=== PATIENT | female | born 1960 | race Caucasian/White ===

== ENCOUNTER 2016-06-11 08:38 | Emergency (ER) | payer MEDICARE, OTHER ==
[~2016-06-11] VITALS: Ht 157.5 cm; Wt 85.7 kg
[~2016-06-11 08:38] MED LIST: AMOX875T PO; CYCL10TA2 PO; DIGO125T16 PO; FURO-69 PO; HYDR-971 PO; IBUP-1060 PO; METO-313 PO; NAPR250T2 PO; NITR0.4T6 SL
[2016-06-11 08:50] VITALS: BP 146/84
[2016-06-11] MEDS ORDERED: HYDR-971 PO (09:08)
[2016-06-11] MEDS ORDERED: AMOX500C PO (09:08)
[2016-06-11] MEDS ORDERED: FLUC150T PO (09:08)
--- NOTE | 2016-06-11 09:08 | PHYS DOC ---
Past Medical History Past Medical History: Anxiety, CAD, CHF, COPD, Hypertension, VT, Other Additional Past Medical Histor: VT x 13; cardiac arrest Past Surgical History: Coronary Bypass Surgery, , Tubal ligation, Other Additional Past Surgical Histo: right femoral artery stent; right knee Alcohol Use: None Drug Use: None Adult General Chief Complaint Chief Complaint: DENTAL PROBLEM HPI HPI Patient is a 56 year old female who presents the emergency room with complaint of atraumatic left lower dental pain that began approximately 2 days ago. Patient has a history of poor dental health/dental caries. She was seen here in December of this past year with the same complaint. She did follow up with [facility]. She states that she will follow-up again with [facility] to be taking care of. She denies antibiotic use or dental procedures within the past 30 days. She denies any fevers or chills, myalgias or arthralgias. Review of Systems Review of Systems Constitutional: Denies fever or chills [] Eyes: Denies change in visual acuity, redness, or eye pain [] HENT: Denies nasal congestion or sore throat [] Respiratory: Denies cough or shortness of breath [] Cardiovascular: No additional information not addressed in HPI [] GI: Denies abdominal pain, nausea, vomiting, bloody stools or diarrhea [] : Denies dysuria or hematuria [] Musculoskeletal: Denies back pain or joint pain [] Integument: Denies rash or skin lesions [] Neurologic: Denies headache, focal weakness or sensory changes [] Endocrine: Denies polyuria or polydipsia [] Allergies Allergies Allergies Coded Allergies Type Severity Reaction Last Updated Verified No Known Drug Allergies 11/28/14 No Physical Exam Physical Exam Constitutional: Well developed, well nourished, mild distress, non-toxic appearance. HENT: Normocephalic, atraumatic, bilateral external ears normal, oropharynx moist, no oral exudates, nose normal. There is no trismus. Patient is widespread dental caries and very stages of decay. Her mandibular lateral incisors and cuspids, both left and right are decayed into the dentin with a large amount of plaque debris buildup at the base and gingival swelling. There is no purulent drainage or fluctuant pockets indicating an abscess. Patient's first and second mandibular molars bilaterally are decayed into the pulp at the gumline level. There is mild inflammation around these molars. There is no purulent drainage or fluctuant pocket indicative of an abscess. Eyes: PERRLA, EOMI, conjunctiva normal, no discharge. [] Neck: Normal range of motion, no tenderness, supple, no stridor. Cardiovascular:Heart rate regular rhythm, no murmur [] Lungs & Thorax: Bilateral breath sounds clear to auscultation [] Abdomen: Bowel sounds normal, soft, no tenderness, no masses, no pulsatile masses. [] Skin: Warm, dry, no erythema, no rash. [] Back: No tenderness, no CVA tenderness. [] Extremities: No tenderness, no cyanosis, no clubbing, ROM intact, no edema. [] Neurologic: Alert and oriented X 3, normal motor function, normal sensory function, no focal deficits noted. [] Psychologic: Affect normal, judgement normal, mood normal. [] EKG EKG [] Radiology/Procedures Radiology/Procedures [] Course & Med Decision Making Course & Med Decision Making Pertinent Labs and Imaging studies reviewed. (See chart for details) [] Dragon Disclaimer Dragon Disclaimer This electronic medical record was generated, in whole or in part, using a voice recognition dictation system. Departure Departure Impression: Primary Impression: Infected dental caries Disposition: HOME, SELF-CARE Condition: GOOD Referrals: HOMERO ROCKWELL (PCP) Patient Instructions: Dental Caries-Brief, Dental Pain, [id number] Additional Instructions: 1. Take the medication as prescribed. 2. Review the discharge instructions for self-care and reasons to return to the emergency department. 3. Contact [facility] to get in for follow-up as soon as possible. Be sure to explain to the office staff that you are on antibiotics. 4. Should you require any refills, contact your primary care doctor for this. Scripts Fluconazole (Diflucan)150 Mg Tablet1 Tab PO ONCE symptoms of yeast infection #1 TAB Ref 1 Prov:THAD MACEDO 06/11/16 Hydrocodone/Apap 5-325 (Sunland 5-325 Tablet)1 Each Tablet1 Tab PO PRN Q6HRS PRN PAIN #15 TAB Prov:THAD MACEDO 06/11/16 Amoxicillin 500 Mg [id number] Mg PO TID #30 CAP Prov:THAD MACEDO 06/11/16 THAD MACEDO Jun 11, 2016 09:08
== END 2016-06-11 09:13 | disposition home or self-care (01) ==
LOC: ER 08:38
DX: K02.9 Dental caries, unspecified (principal); K04.7 Periapical abscess without sinus; I10 Essential (primary) hypertension; F41.9 Anxiety disorder, unspecified; I25.10 Atherosclerotic heart disease of native coronary artery without angina pectoris; I25.2 Old myocardial infarction; J44.9 Chronic obstructive pulmonary disease, unspecified; I11.0 Hypertensive heart disease with heart failure; I50.9 Heart failure, unspecified; Z95.1 Presence of aortocoronary bypass graft; Z98.51 Tubal ligation status
CPT/HCPCS: 99283

== ENCOUNTER 2016-07-05 16:51 | Inpatient (IN) | payer MEDICARE, MEDICAID ==
[~2016-07-05] VITALS: Ht 157.5 cm; Wt 87.2 kg
[~2016-07-05 16:51] MED LIST changes: +AMOX500C PO; +FLUC150T PO
--- NOTE | 2016-07-05 17:28 | RAD ---
PROCEDURE CT brain without contrast HISTORY CODE STROKE; RIGHT SIDE WEAKNESS AND NUMBNESS TECHNIQUE Axial CT images were obtained through the brain. One or more of the following individualized dose reduction techniques were utilized for this examination: 1. Automated exposure control; 2. Adjustment of the mA and/or kV according to patient size; 3. Use of iterative reconstruction technique.One or more of the following individualized dose reduction techniques were utilized for this examination: 1. Automated exposure control; 2. Adjustment of the mA and/or kV according to patient size; 3. Use of iterative reconstruction technique. COMPARISON None FINDINGS CT scan of the brain was done without contrast. There is no intracranial hemorrhage or subdural hematoma. Ventricles are normal in size. There is no mass effect or shift of the midline. An acute CVA is not identified at this time. Visualized sinuses are clear. IMPRESSION 1. No intracranial hemorrhage or acute finding noted. The emergency room was called notified of the findings at 5:25 p.m. Electronically signed by: Jimmy Morrell MD (Jul 05, 2016 17:26:46)
[2016-07-05 17:45] LABS: BASO % 1 % (0-3); EOS % 3 % (0-3); HEMATOCRIT 50.4 % (36.0-47.0); HEMOGLOBIN 16.6 g/dL (12.0-15.5); LYMPH # 1.8 x10^3/uL (1.0-4.8); LYMPH % 32 % (24-48); MEAN CORPUSCULAR HEMOGLOBIN 35 pg (25-35); MEAN CORPUSCULAR HGB CONC 33 g/dL (31-37); MEAN CORPUSCULAR VOLUME 107 fL (79-100); MONO % 9 % (0-9); NEUT % 56 % (31-73); PLATELET COUNT 144 x10^3/uL (140-400); RED BLOOD COUNT 4.73 x10^6/uL (3.50-5.40); RED CELL DISTRIBUTION WIDTH 14.1 % (11.5-14.5); WHITE BLOOD COUNT 5.8 x10^3/uL (4.0-11.0)
[2016-07-05 17:48] LABS: INR 0.9 (0.8-1.1); PROTHROMBIN TIME PATIENT 11.8 SEC (11.7-14.0)
[2016-07-05 17:56] LABS: CREATININE 0.8 mg/dL (0.6-1.0); GFR 74.5; POTASSIUM 3.9 mmol/L (3.5-5.1)
[2016-07-05 18:02] LABS: ALBUMIN 3.2 g/dL (3.4-5.0); ALBUMIN/GLOBULIN RATIO 0.9 (1.0-1.7); TOTAL BILIRUBIN 0.3 mg/dL (0.2-1.0); TOTAL PROTEIN 6.9 g/dL (6.4-8.2)
--- NOTE | 2016-07-05 19:19 | PHYS DOC ---
Past Medical History Past Medical History: Anxiety, CAD, CHF, COPD, High Cholesterol, Hypertension, NC, Other Additional Past Medical Histor: NC x 13; cardiac arrest Past Surgical History: Coronary Bypass Surgery, , Hysterectomy, Knee Replacement, Tonsillectomy, Tubal ligation, Other Additional Past Surgical Histo: right femoral artery stent; right knee, DENTAL EXT Alcohol Use: None Drug Use: None Adult General Chief Complaint Chief Complaint: NEURO SYMPTOMS/DEFICITS HPI HPI Patient is a 56 year old female brought to the ED by her boyfriend with several complaints. History is mostly from the boyfriend. The patient and the boyfriend were shopping at [employer] today and she felt perfectly fine. They were standing in line to check out when she suddenly felt hot all over, she became very flushed, and she felt like she was going to throw up. She went outside the store and did throw up, then she went to the truck to rest. He came out of [employer] and drove home, when they got home to their house when she was getting out of the truck, she had an episode of severe pain in the middle of her chest that felt like cardiac chest pain. She took 3 nitroglycerin and the pain eased up and almost went away. She felt weak but otherwise felt better. She went in the house and laid down. Sometime after laying down, she became aware that the right side of her face and her right arm felt numb. She just didn't feel right. The patient's boyfriend and her daughter convinced her to come to the emergency room to be evaluated. On arrival, she complained of right facial and arm numbness and right arm and leg weakness. Patient has a history of open heart surgery and a history of a TIA in the past. She is a smoker. Review of Systems Review of Systems Constitutional: Denies fever or chills [] Eyes: Denies change in visual acuity, redness, or eye pain [] HENT: Denies nasal congestion or sore throat [] Respiratory: Denies cough or shortness of breath [] Cardiovascular: As in history of present illness GI: As in history of present illness she did vomit once earlier today : Denies dysuria or hematuria [] Musculoskeletal: Denies back pain or joint pain [] Integument: Denies rash or skin lesions [] Neurologic: As in history of present illness Allergies Allergies Allergies Coded Allergies Type Severity Reaction Last Updated Verified No Known Drug Allergies 11/28/14 No Physical Exam Physical Exam Constitutional: Well developed, well nourished, alert, transferred with assistance from wheelchair to the ED bed. Her mentation does seem normal but perhaps a little slowed. She is not answering questions well on arrival, history is mostly from her boyfriend. HENT: Normocephalic, atraumatic, bilateral external ears normal, oropharynx moist, no oral exudates, nose normal. [] Eyes: conjunctiva normal, no discharge. [] Neck: Normal range of motion, no stridor. [] Cardiovascular:Heart rate regular rhythm, no murmur [] Lungs & Thorax: Bilateral breath sounds clear to auscultation [] Abdomen: Bowel sounds normal, soft, no tenderness, no masses, no pulsatile masses. [] Skin: Warm, dry, no erythema, no rash. [] Extremities: No tenderness, no cyanosis, no clubbing, ROM intact, no edema. [] Neurologic: Alert to voice, GCS 15, no facial asymmetry, speech is not slurred but her answers to questions are nonspecific and she is not able to fully answer questions on NIH testing. Cranial nerves II through XII testing reveal decreased sensation on the right side of the face, no tongue deviation or facial asymmetry. Extremity testing reveals 4 out of 5 strength in the right arm with slight pronator drift. Right leg strength 2-3 over 5, she is able to elevate her right leg off the bed but it drops within the count of 5, decreased strength for dorsiflexion in the right great toe. Current Patient Data Vital Signs Vital Signs Date Time Temp Pulse Resp B/P Pulse Ox O2 Delivery O2 Flow Rate FiO2 07/05/16 18:49 62 13 169/74 93 Nasal Cannula 3 07/05/16 17:15 98.3 98.3 Lab Values Laboratory Tests Test 07/05/16 17:11 07/05/16 17:20 Glucose (Fingerstick) 106mg/dL (70-99) H White Blood Count 5.8x10^3/uL (4.0-11.0) Red Blood Count 4.73x10^6/uL (3.50-5.40) Hemoglobin 16.6g/dL (12.0-15.5) H Hematocrit 50.4% (36.0-47.0) H Mean Corpuscular Volume 107fL (79-100) H Mean Corpuscular Hemoglobin 35pg (25-35) Mean Corpuscular Hemoglobin Concent 33g/dL (31-37) Red Cell Distribution Width 14.1% (11.5-14.5) Platelet Count 144x10^3/uL (140-400) Neutrophils (%) (Auto) 56% (31-73) Lymphocytes (%) (Auto) 32% (24-48) Monocytes (%) (Auto) 9% (0-9) Eosinophils (%) (Auto) 3% (0-3) Basophils (%) (Auto) 1% (0-3) Neutrophils # (Auto) 3.2x10^3uL (1.8-7.7) Lymphocytes # (Auto) 1.8x10^3/uL (1.0-4.8) Monocytes # (Auto) 0.5x10^3/uL (0.0-1.1) Eosinophils # (Auto) 0.2x10^3/uL (0.0-0.7) Basophils # (Auto) 0.0x10^3/uL (0.0-0.2) Prothrombin Time 11.8SEC (11.7-14.0) Prothrombin Time INR 0.9 (0.8-1.1) PTT 31SEC (24-38) Sodium Level 141mmol/L (136-145) Potassium Level 3.9mmol/L (3.5-5.1) Chloride Level 104mmol/L (98-107) Carbon Dioxide Level 30mmol/L (21-32) Anion Gap 7 (6-14) Blood Urea Nitrogen 6mg/dL (7-20) L Creatinine 0.8mg/dL (0.6-1.0) Estimated GFR (Cockcroft-Gault) 74.5 BUN/Creatinine Ratio 8 (6-20) Glucose Level 105mg/dL (70-99) H Calcium Level 9.0mg/dL (8.5-10.1) Total Bilirubin 0.3mg/dL (0.2-1.0) Aspartate Amino Transferase (AST) 15U/L (15-37) Alanine Aminotransferase (ALT) 16U/L (14-59) Alkaline Phosphatase 129U/L (46-116) H Troponin I Quantitative < 0.017ng/mL (0.000-0.055) Total Protein 6.9g/dL (6.4-8.2) Albumin 3.2g/dL (3.4-5.0) L Albumin/Globulin Ratio 0.9 (1.0-1.7) L Laboratory Tests 07/05/16 17:20 Laboratory Tests 07/05/16 17:20 EKG EKG 12-lead EKG read by me. Sinus rhythm. Heart rate 90. There are no acute ST or T wave changes indicative of ischemia or infarction. No STEMI. 1706 [] Radiology/Procedures Radiology/Procedures One view portable chest x-ray read by heart is enlarged. Streaky infiltrate in the right lower lobe, question new versus old. Fullness in the right hilum. No definite infiltrate. CT scan of the head read by the radiologist who called me with the report. No acute findings. [] Course & Med Decision Making Course & Med Decision Making Pertinent Labs and Imaging studies reviewed. (See chart for details) 56-year-old female who presents to the ED after she had an episode first of weakness and vomiting followed by a severe chest pain that certainly sounds suspicious for cardiac pain, which went away after she took 3 nitroglycerin at home. Next, she developed right face and arm numbness and tingling along with right arm and leg weakness and presents with this complaint. The timeline is difficult to establish since the patient and her boyfriend were not looking at the clock, however, with a lot of specific questions I do believe that the right arm and leg weakness symptoms started at 2:00 or after. The patient was made a code stroke and sent to CT scan right away, after CT scan I reevaluated the patient. Her initial NIH stroke scale performed by nursing staff was 6 and I got the same when I evaluated her after CT scan. At this time, while waiting for CT scan results, we are closing in on about 4 hours after potential onset of symptoms. I discussed with the patient the possibility of the use of TPA for a possible acute ischemic stroke and she would be interested in considering this treatment. I discussed the case with Dr. Newell, on-call for neurology. We discussed her symptoms and presentation in detail and agreed that she would potentially meet the criteria for the 3-4-1/2 hour window for TPA administration. I returned to the patient's room to discuss this with her some more and found her to be moving around on the bed with much less apparent weakness of her right arm and right leg. At this time, I reevaluated the patient and re-did a neuro exam. She still does have right facial numbness. Her level of alertness is normal and she is fully alert. She is answering questions appropriately with no slurring of her speech or any has a tendency of her speech. Upper extremity testing shows very mild pronator drift of her right arm compared to the left. I would not even subtracted point on NIH for this but she does have a very mild amount of drift. Her right leg strength is much improved. She is able to straighten her right leg against resistance and I would give her a 5 out of 5 for strength below the knee, dorsiflexion of her right great toe is still weak. At this time, approximately 4 hours and 10 minutes after likely onset of symptoms, after the patient has had a CT scan read by the radiologist as no acute findings, the patient's symptoms have improved significantly between the first time I saw her prior to her going to CT and the third time I saw her when I returned to discuss possible TPA. Because of the significant resolution of her symptoms I don't believe TPA is indicated at this time. I discussed this with the patient who at that time decided she would like to be discharged and wanted to go home. I had a lengthy discussion with the patient about the fact that even though her symptoms are improving, I feel she needs to be admitted for TIA, probable small amount of ischemic stroke, as well as the significant chest pain that occurred prior to her stroke symptoms. After lengthy discussion between myself, the patient, and her boyfriend, I did convince the patient to stay for further evaluation of cardiology and stroke. I discussed the case with Dr. Lugo, [facility], who will admit the patient. I wrote bridge orders. I discussed the case again with Dr. Newell, to let him know that her symptoms are resolving significantly so I did not administer TPA since we are outside of the 3 hour window and symptom resolution is occurring. The patient remained stable in the emergency department without any recurrence of her chest pain or stroke symptoms. She will be admitted to rule out and for cardiology and neurology evaluation. [] Madeline Disclaimer Dragon Disclaimer This electronic medical record was generated, in whole or in part, using a voice recognition dictation system. Departure Departure Impression: Primary Impression: Stroke Additional Impression: Chest pain Disposition: ADMITTED INPATIENT Admitting Physician: Other Condition: STABLE Referrals: UNKNOWN PCP NAME (PCP) Problem Qualifiers JAKI PINA MD Jul 05, 2016 19:19
[2016-07-05] MEDS ORDERED: NITROGLYCERIN SUBLINGUAL 0.4 MG BOTTLE OF 25. SL PRN ×2 (19:45→23:00)
--- NOTE | 2016-07-05 21:13 | ACF ---
Admit Criteria Forms Admit Criteria Forms Admit Criteria Forms STROKE: ISCHEMIC Clinical Indications for Admission to Inpatient Care (Place 'X' for any and all applicable criteria): Admission is indicated for ANY ONE of the following(1)(2)(3)(4): [X]I. Acute stroke Extended stay beyond goal length of stay may be needed for(1)(2) [ ]a) Major deficit or clinical deterioration [ ]b) Hospital-acquired infection (eg, urinary tract infection, pneumonia) [ ]c) Embolic cause of stroke [ ]d) Venous thromboembolism(9) [ ]e) Seizures [ ]f) Bleeding (eg, cerebral) [ ]g) Increased intracranial pressure [ ]h) Comorbidities [ ]i) Surgical intervention The original [employer] content created by [employer] has been revised. The portions of the content which have been revised are identified through the use of italic text or in bold, and [facility] has neither reviewed nor approved the modified material. All other unmodified content is copyright [facility]. Please see references footnoted in the original [facility] edition 2016 NARA COLLADO Jul 05, 2016 21:13
[2016-07-05 21:15] VITALS: BP 154/81
[2016-07-05] MEDS ORDERED: LISI-334 PO (22:34)
[2016-07-05] MEDS ORDERED: CLON0.5T3 PO (22:34)
[2016-07-05] MEDS ORDERED: DEXT15DR16 OP (22:34)
[2016-07-05] MEDS ORDERED: TRAZ50TA15 PO (22:34)
[2016-07-05] MEDS ORDERED: ESCI20TA10 PO (22:34)
[2016-07-05] MEDS ORDERED: DIGO250T PO (22:34)
[2016-07-05] MEDS ORDERED: ASPI81TA2 PO (22:34)
[2016-07-05] MEDS ORDERED: VENTOLIN HFA18 GM INH (22:34)
[2016-07-05] MEDS ORDERED: FLUT1DIS3 IH (22:34)
[2016-07-05] MEDS ORDERED: METO-313 PO (22:34)
[2016-07-05] MEDS ORDERED: ATOR40TA59 PO (22:34)
[2016-07-05] MEDS ORDERED: OXYC-244 PO (22:34)
[2016-07-05] MEDS ORDERED: NON FORMULARY ITEM (Albuterol Sulfate (Ventolin Hfa Inhaler) 2 PUFF) INH PRN (23:00)
[2016-07-05] MEDS ORDERED: CLONAZEPAM 0.5 MG TABLET PO PRN (23:00)
[2016-07-05] MEDS ORDERED: ALBUTEROL SULFATE 2.5 MG/3 ML NEBU. NEB PRN (23:15)
[2016-07-05] MEDS: OXYCODONE/APAP 5/325 TABLET. PO PRN (23:27)
[2016-07-05 23:35] VITALS: BP 148/71
--- NOTE | 2016-07-06 00:28 | HP ---
ADMIT DATE: 07/05/2016 CHIEF COMPLAINT: Chest pain and right arm and face paresthesia. 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 She was shopping at [employer] today when she all of a sudden became very nauseous at checkout. She actually ran outside, did not vomit, drove home and when she stepped out of the car actually had a sudden onset of very sharp chest pain in the middle of her chest, took 3 nitro which finally relieved the pain. The patient carried on as usual, did not want to go to the hospital. However, a few minutes later, she noted tingling in her face as well as in her right arm. Her boyfriend was convinced by her daughter to bring the patient into the Emergency Room for further workup and care. In the Emergency Room, the symptoms in her arm actually had resolved, she still has faint tingling in her right face, chest pain has completely resolved. PAST MEDICAL HISTORY: CAD status post TX and CABG at age 36, multiple interventions since, CHF, hypertension, hypercholesterolemia, TIA, COPD, night O2 dependent, peripheral vascular disease with right femoral artery stent. PAST SURGICAL HISTORY: She is status post , hysterectomy, tonsillectomy, tubal ligation, knee replacement. FAMILY HISTORY: Positive for CAD. SOCIAL HISTORY: Lives with her boyfriend. Smokes a pack a day, which is actually decreased for her. No alcohol or drugs. ALLERGIES: No known drug allergies. MEDICATIONS: MAR reconciled with home medications. REVIEW OF SYSTEMS: Positive as per HPI. The rest of organ system review is negative. PHYSICAL EXAMINATION: VITAL SIGNS: Today shows blood pressure 154/81, heart rate 81, respiratory rate 20. She is afebrile. GENERAL: This is an obese 56-year-old woman, alert and oriented, in no acute distress. HEENT: Shows no scleral icterus. Oral mucosa is moist. She is edentulous. NECK: Supple. LUNGS: Clear to auscultation bilaterally. CARDIOVASCULAR: Heart is regular rate and rhythm. ABDOMEN: Obese, positive bowel sounds. EXTREMITIES: Show no edema. SKIN: Warm, soft and dry without any rash. LABORATORY DATA: CBC with a WBC of 5.8, hemoglobin 16.6, MCV of 107. Chemistries with a BUN and creatinine of 6 and 0.8. Electrolytes within normal. LFTs within normal. Initial troponin is negative. Coags are within normal. IMAGING STUDIES: Chest x-ray obtained in the Emergency Room reviewed by myself shows mild cephalization, cardiomegaly, sternotomy wires as well as iván over left lung field (patient denies any lung surgery in the past). CT of the head without contrast shows no intracranial hemorrhaging or acute finding. ASSESSMENT AND PLAN: The patient is a 56-year-old woman with massive previous vascular issues including multiple heart attacks as well as TIA who unfortunately continues to smoke. She now presents with potential acute coronary syndrome as well as cerebrovascular accident/transient ischemic attack. She has been admitted, placed on tele. We will rule out acute coronary syndrome. Cardiology will be consulted. Dr. Cassidy from Neurology likewise has been informed. We will continue her home medications. She has multiple prescriptions for duplicate pain medications. She states that she currently only takes Percocet. This medication will be continued. The patient requests nicotine patch for her tobacco abuse. Unfortunately, we will have to hold off on that until cleared from a cardiac and neurological standpoint. The patient has O2 dependent chronic obstructive pulmonary disease. 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 Interestingly, her MCV is significantly elevated as well. Obtain B12 and folate levels to elucidate. We will start her on Lovenox for prophylaxis. Patient expreses her with to be DNR. ANGELA WRIGHT MD DR: VAMSI/topher JOB#: [id number] / [id number] RUBEN
[2016-07-06 03:00] VITALS: BP 100/44
--- NOTE | 2016-07-06 06:29 | EKG ---
[facility] [address] [place] [address] Test Date: 2016-07-05 Test Time: 17:01:08 Pat Name: ALFREDO WILSON Department: Room: Gender: F Clinical Reimbursement Specialist: : [id number] Requested By: JAKI PINA Order Number: [id number] Reading MD: Measurements Intervals Ransom Rate: 90 P: 56 VT: 154 QRS: 87 QRSD: 90 T: 69 QT: 396 QTc: 489 Interpretive Statements SINUS RHYTHM QRS(T) CONTOUR ABNORMALITY CONSISTENT WITH ANTERIOR INFARCT PROBABLY OLD CONSISTENT WITH INFEROLATERAL INFARCT PROBABLY OLD ABNORMAL ECG RI6.01 No previous ECG available for comparison
[2016-07-06 07:35] VITALS: BP 139/84
[2016-07-06 07:45] LABS: BASO # 0.1 x10^3/uL (0.0-0.2); BASO % 1 % (0-3); EOS % 2 % (0-3); HEMATOCRIT 54.6 % (36.0-47.0); HEMOGLOBIN 18.1 g/dL (12.0-15.5); LYMPH # 1.5 x10^3/uL (1.0-4.8); LYMPH % 19 % (24-48); MEAN CORPUSCULAR HEMOGLOBIN 35 pg (25-35); MEAN CORPUSCULAR HGB CONC 33 g/dL (31-37); MEAN CORPUSCULAR VOLUME 107 fL (79-100); MONO % 7 % (0-9); NEUT % 72 % (31-73); PLATELET COUNT 165 x10^3/uL (140-400); RED BLOOD COUNT 5.11 x10^6/uL (3.50-5.40); RED CELL DISTRIBUTION WIDTH 14.1 % (11.5-14.5); WHITE BLOOD COUNT 8.3 x10^3/uL (4.0-11.0)
[2016-07-06 07:55] LABS: CALCIUM 9.2 mg/dL (8.5-10.1); CREATININE 0.8 mg/dL (0.6-1.0); GFR 74.5; POTASSIUM 4.5 mmol/L (3.5-5.1)
[2016-07-06] MEDS ORDERED: BUDESONIDE 0.5 MG/2 ML NEBU NEB SCH (08:00)
[2016-07-06] MEDS: ALBUTEROL SULFATE 2.5 MG/3 ML NEBU. NEB SCH ×3 (08:11→15:30)
--- NOTE | 2016-07-06 08:35 | RAD ---
Portable chest, 07/05/2016: History: Right-sided numbness Comparison is made to a study from 02/05/2016. There has been previous chest surgery. The heart is at the upper limits of normal in size. There is calcific plaquing of the aorta. No pulmonary infiltrates are seen. There is no evidence of pleural fluid. The bony structures are demineralized. There is a moderate thoracolumbar scoliosis. IMPRESSION: 1. Borderline cardiomegaly and aortic atherosclerosis. 2. No acute abnormality is detected.
[2016-07-06] MEDS ORDERED: FUROSEMIDE 20 MG TABLET PO SCH (09:00)
[2016-07-06] MEDS ORDERED: LISINOPRIL 20 MG TABLET PO SCH (09:00)
[2016-07-06] MEDS ORDERED: NON FORMULARY ITEM (Fluticasone/Salmeterol (Advair 250-50 Diskus) 1 PUFF) IH SCH (09:00)
[2016-07-06] MEDS ORDERED: ASPIRIN 81 MG TAB.CHEW PO SCH (09:00)
[2016-07-06] MEDS ORDERED: ASPIRIN 325 MG TABLET PO SCH (09:30)
[2016-07-06] MEDS ORDERED: NICOTINE POLACRILEX 2MG GUM PACKAGE of 12. BC PRN (09:30)
[2016-07-06] MEDS ORDERED: DIAZEPAM 5 MG TABLET PO ONE (09:30)
[2016-07-06] MEDS ORDERED: NICOTINE 21MG PATCH. TD SCH (10:00)
--- NOTE | 2016-07-06 11:04 | PDOC2 ---
CARDIAC CONSULT DATE OF CONSULT Date of Consult DATE: 07/06/16 TIME: 11:04 REASON FOR CONSULT Reason for Consult: chest pain REFERRING PHYSICIAN Referring Physician: Dr. Kris Meneses SOURCE Source: Chart review, Patient HISTORY OF PRESENT ILLNESS HISTORY OF PRESENT ILLNESS 56 year old female who became nauseated while in line at [employer] yesterday. Went home and had chest pain while getting out of the truck described as a sensation of "getting hit in the chest" as well as tightness. Initially located pain in the epigastric region then moved her hand up to the substernal region. Pain radiated into her left arm and associated with dyspnea , diaphoresis, nausea, dizziness. Chronic LE edema with SO, PND and orthopnea. Took 3 SL NTG and developed tingling in her right face and right arm numbness. Pain is similar to her anginal symptoms but not exactly the same. Troponin levels not consistent with AMI and EKG without acute changes but demonstrates previous inferior CT and PRWP. Reportedly saw Dr. Ritter @ [facility] 2 weeks ago and scheduled again later this week. Wants to leave. Reason for Visit: CP PAST MEDICAL HISTORY Cardiovascular: CAD (with hx of multiple MIs with multiple PCI previously - last PCI in the ; CABG at age 36 with reported 3 out 5 grafts occluded), CHF, HTN, Hyperlipidemia, Other (PVD - right femoral stent) Pulmonary: Asthma, COPD (nocturnal O2 use) CENTRAL NERVOUS SYSTEM: TIA Psych: Depression Musculoskeletal: Other (scoliosis) PAST SURGICAL HISTORY Past Surgical History: CABG, , Total knee replacement (right), Tonsillectomy, Hysterectomy FAMILY HISTORY Family History: Coronary Artery Disease (both sides of family) SOCIAL HISTORY Smoke: 2 packs per day (3 ppd X 41 years = 123 pack years; ? decreased to 1.5 ppd recently) ALCOHOL: none Drugs: None CURRENT MEDICATIONS CURRENT MEDICATIONS Current Medications Medications (Trade) Dose Ordered Sig/Donovan Route PRN Reason Start Time Stop Time Status Last Admin Dose Admin Aspirin (Children'S Aspirin) 81 mg DAILY PO 07/06/16 09:00 07/06/16 09:26 DC 07/06/16 09:34 Clonazepam (Klonopin) 0.5 mg PRN BID PRN PO ANXIETY / AGITATION 07/05/16 23:00 07/05/16 23:27 Furosemide (Lasix) 20 mg DAILY PO 07/06/16 09:00 07/06/16 09:39 Lisinopril (Prinivil) 20 mg DAILY PO 07/06/16 09:00 07/06/16 09:39 Oxycodone/ Acetaminophen (Percocet 5/325) 1 tab PRN Q6HRS PRN PO SEVERE PAIN 07/05/16 23:00 07/05/16 23:27 Albuterol Sulfate (Ventolin Neb Soln) 2.5 mg RTQID NEB 07/06/16 08:00 07/06/16 08:11 Budesonide (Pulmicort) 0.5 mg RTBID NEB 07/06/16 08:00 07/06/16 08:11 Aspirin (Navi Aspirin) 325 mg DAILYWBKFT PO 07/06/16 09:30 07/06/16 09:36 Diazepam (Valium) 10 mg 1X ONCE PO 07/06/16 09:30 07/06/16 09:31 DC 07/06/16 09:36 Nicotine (Nicoderm Cq 21mg) 1 patch DAILY TD 07/06/16 10:00 07/06/16 09:36 ALLERGIES ALLERGIES: Coded Allergies: No Known Drug Allergies (Unverified , 11/28/14) ROS Review of System 14 point review with pertinent positives in HPI PHYSICAL EXAM General: Alert, Oriented X3, Cooperative, No acute distress HEENT: Atraumatic, PERRLA Lungs: Clear to auscultation Heart: Regular rate, Normal S1, Normal S2, No murmurs, Other (no carotid bruits ) Abdomen: Normal bowel sounds, Soft Extremities: Other (LLE edema 1+; none in RLE) Skin: No rashes Neuro: Normal speech MUSCULOSKELETAL: No deformity VITALS VITALS Vital Signs Date Time Temp Pulse Resp B/P Pulse Ox O2 Delivery O2 Flow Rate FiO2 07/06/16 09:39 89 139/84 07/06/16 08:11 97 Nasal Cannula 3.0 07/06/16 07:35 98.4 20 98.4 LABS Lab: Laboratory Tests Test 07/05/16 17:11 07/05/16 17:20 07/06/16 01:52 07/06/16 07:31 Glucose (Fingerstick) 106mg/dL (70-99) White Blood Count 5.8x10^3/uL (4.0-11.0) 8.3x10^3/uL (4.0-11.0) Red Blood Count 4.73x10^6/uL (3.50-5.40) 5.11x10^6/uL (3.50-5.40) Hemoglobin 16.6g/dL (12.0-15.5) 18.1g/dL (12.0-15.5) Hematocrit 50.4% (36.0-47.0) 54.6% (36.0-47.0) Mean Corpuscular Volume 107fL (79-100) 107fL (79-100) Mean Corpuscular Hemoglobin 35pg (25-35) 35pg (25-35) Mean Corpuscular Hemoglobin Concent 33g/dL (31-37) 33g/dL (31-37) Red Cell Distribution Width 14.1% (11.5-14.5) 14.1% (11.5-14.5) Platelet Count 144x10^3/uL (140-400) 165x10^3/uL (140-400) Neutrophils (%) (Auto) 56% (31-73) 72% (31-73) Lymphocytes (%) (Auto) 32% (24-48) 19% (24-48) Monocytes (%) (Auto) 9% (0-9) 7% (0-9) Eosinophils (%) (Auto) 3% (0-3) 2% (0-3) Basophils (%) (Auto) 1% (0-3) 1% (0-3) Neutrophils # (Auto) 3.2x10^3uL (1.8-7.7) 5.9x10^3uL (1.8-7.7) Lymphocytes # (Auto) 1.8x10^3/uL (1.0-4.8) 1.5x10^3/uL (1.0-4.8) Monocytes # (Auto) 0.5x10^3/uL (0.0-1.1) 0.6x10^3/uL (0.0-1.1) Eosinophils # (Auto) 0.2x10^3/uL (0.0-0.7) 0.1x10^3/uL (0.0-0.7) Basophils # (Auto) 0.0x10^3/uL (0.0-0.2) 0.1x10^3/uL (0.0-0.2) Prothrombin Time 11.8SEC (11.7-14.0) Prothromb Time International Ratio 0.9 (0.8-1.1) Activated Partial Thromboplast Time 31SEC (24-38) Sodium Level 141mmol/L (136-145) 144mmol/L (136-145) Potassium Level 3.9mmol/L (3.5-5.1) 4.5mmol/L (3.5-5.1) Chloride Level 104mmol/L (98-107) 106mmol/L (98-107) Carbon Dioxide Level 30mmol/L (21-32) 29mmol/L (21-32) Anion Gap 7 (6-14) 9 (6-14) Blood Urea Nitrogen 6mg/dL (7-20) 7mg/dL (7-20) Creatinine 0.8mg/dL (0.6-1.0) 0.8mg/dL (0.6-1.0) Estimated GFR (Cockcroft-Gault) 74.5 74.5 BUN/Creatinine Ratio 8 (6-20) Glucose Level 105mg/dL (70-99) 143mg/dL (70-99) Calcium Level 9.0mg/dL (8.5-10.1) 9.2mg/dL (8.5-10.1) Total Bilirubin 0.3mg/dL (0.2-1.0) Aspartate Amino Transf (AST/SGOT) 15U/L (15-37) Alanine Aminotransferase (ALT/SGPT) 16U/L (14-59) Alkaline Phosphatase 129U/L (46-116) Troponin I Quantitative < 0.017ng/mL (0.000-0.055) 0.023ng/mL (0.000-0.055) 0.018ng/mL (0.000-0.055) Total Protein 6.9g/dL (6.4-8.2) Albumin 3.2g/dL (3.4-5.0) Albumin/Globulin Ratio 0.9 (1.0-1.7) Triglycerides Level 95mg/dL (0-150) Cholesterol Level 239mg/dL (0-200) LDL Cholesterol, Calculated 172mg/dL (0-100) VLDL Cholesterol, Calculated 19mg/dL (0-40) HDL Cholesterol 48mg/dL (40-60) Cholesterol/HDL Ratio 5.0 IMAGES IMAGES CXR: Comparison is made to a study from 02/05/2016. There has been previous chest surgery. The heart is at the upper limits of normal in size. There is calcific plaquing of the aorta. No pulmonary infiltrates are seen. There is no evidence of pleural fluid. The bony structures are demineralized. There is a moderate thoracolumbar scoliosis. IMPRESSION: 1. Borderline cardiomegaly and aortic atherosclerosis. 2. No acute abnormality is detected. EKG EKG see HPI ASSESSMENT/PLAN ASSESSMENT/PLAN 1. chest pain no acute changes in EKG, though previous inferior CT troponin levels not consistent with AMI extensive cardiac history - records requested from - ? has been told no further intervention available to her wants to leave and f/u as scheduled @ 2. HLD LDLs = 172 ? taking statin meds 3. HTN continue meds 4. ? TIA/stroke CT scan negative 5. tobacco abuse 123 pack year history cessation advised 6. CHF, systolic compensated continue medical management 7. COPD with O2 nocturnally 8. PVD ADDENDUM @ 1600: REVIEW OF RECORDS FROM : --[facility] 06/2010: ABNORMAL WITH FIXED SCAR INVOLVING DISTAL ANTEROAPEX AND INFEROAPEX; NO SIGNIFICANT REVERSIBLE ISCHEMIA SEEN; LVEF 59% --ECHO 11/28/2015:LVEF 40%; INFERIOR AND INFEROLATERAL HYPOKINESIS; RV MILDLY DILATED; MAC WITHOUT STENOSIS; RV WORSENED WHEN COMPARED TO 2014 --CATH 08/12/2010: PATENT SVG TO LAD; OCCLUDED MCDONNELL; OCCLUDED SVG TO RCA AND OM; 60% STENOSIS IN [place] AND [place] RCA -- AGGRESSIVE RISK FACTOR AND LIFESTYLE MODIFICATION RECOMMENDED --ECHO 12/31/2015: LVEF 40% --EKG with previous inferior CT --OFFICE NOTES 12/31/2015 CHRONIC SYSTOLIC HF, CLASS C- LASIX INCREASED CHRONIC ANGINA - - [facility] RECOMMENDED DEPRESSED OVER 'S SMOKING CESSATION ADVISED NON-COMPLIANT WITH F/U @ SHE THOUGHT HER CARDIAC DISEASE WAS "CURED" Discussed preceding with attending infection control practitioner - patient agrees to keep scheduled appointment @ [facility] later this week Will not proceed with ischemic evaluation and defer to [facility] cardiology Agreeable with discharge today Problems: DULCE MARIA TORRES APRN Jul 06, 2016 11:04
[2016-07-06 11:15] LABS: FOLATE 5.02 ng/ml (3.2-20.0)
[2016-07-06 11:20] VITALS: BP 119/97
--- NOTE | 2016-07-06 11:27 | RAD ---
PROCEDURE MRI of the brain without contrast 07/06/2016 HISTORY Right-sided facial numbness for 2 days. TECHNIQUE Unenhanced T1 weighted sagittal and axial, T2 weighted axial and coronal and FLAIR, gradient echo and diffusion weighted axial images of the brain were obtained. FINDINGS Comparison is made to a CT scan of the head dated 07/05/2016. Some of the images are degraded by patient motion. The ventricles and sulci are within normal limits in size and configuration. Patchy and several small scattered areas of abnormally increased signal intensity are seen within the periventricular and subcortical white matter both cerebral hemispheres on the FLAIR and T2 weighted images. These measure 2 millimeters to 1 centimeter in size. Their MRI appearance is nonspecific. They could represent areas of relatively mild small vessel ischemic disease. They can be seen in patients with a history of migraine headaches. They could also be seen in the setting of a demyelinating disorder such as multiple sclerosis. Clinical correlation is recommended. No acute parenchymal abnormality is definitely seen. There is no MRI evidence of acute ischemia/infarction. No extra-axial fluid collection is noted. The paranasal sinuses are essentially clear. There are minimal bilateral mastoid effusions, right greater than left. Normal flow voids are seen within the major vascular structures surrounding the brain parenchyma. IMPRESSION 1. Patchy and several small scattered areas of abnormally increased signal intensity are seen within the white matter both cerebral hemispheres. Their MRI appearance is nonspecific as outlined above. 2. No acute parenchymal abnormality is definitely seen. Electronically signed by: Artemio Faust MD (Jul 06, 2016 11:26:12)
[2016-07-06] MEDS: OXYCODONE/APAP 5/325 TABLET. PO PRN ×2 (12:34→17:10)
--- NOTE | 2016-07-06 12:45 | PDOC2 ---
NEUROLOGY CONSULT Date of Admission Date of Admission DATE: 07/06/16 TIME: 12:37 Reason for Consult Reason for Consult: Stroke symptoms Referring Physician Referring Physician: Dr. Lugo PCP: Dr. Ritter, [facility] Source Source: Chart review, Patient History of Present Illness History of Present Illness The patient is a 56-year-old right-handed female who was shopping yesterday when she noticed chest pain and right facial numbness. She has no prior history of stroke but does have extensive cardiac history. She feels fine now but still has some occasional tingling in the face. There is no history of seizure or head injury. Past Medical History Cardiovascular: AFIB, CAD, CHF, HTN, DE, Hyperlipidemia, Other (Peripheral vascular disease) Pulmonary: COPD ( on home oxygen), Pneumonia CENTRAL NERVOUS SYSTEM: CVA (listed in "history") Psych: Anxiety, Depression Musculoskeletal: Osteoarthritis Renal/: UTI Past Surgical History Past Surgical History: CABG, Total knee replacement ( right), Tubal Ligation, Tonsillectomy, Other ( right femoral stent) Family History Family History: No pertinent hx Social History Social History Disabled, single, still smoke cigarettes, no alcohol Current Medications Current Medications Current Medications Nitroglycerin (Nitrostat) 0.4 mg PRN Q5MIN PRN SL CHEST PAIN; Start 07/05/16 at 19:45; Stop 07/06/16 at 19:44 Aspirin (Children'S Aspirin) 81 mg DAILY PO Last administered on 07/06/16 09: 34; Start 07/06/16 at 09:00; Stop 07/06/16 at 09:26; Status DC Atorvastatin Calcium (Lipitor) 40 mg QHS PO ; Start 07/06/16 at 21:00 Clonazepam (Klonopin) 0.5 mg PRN BID PRN PO ANXIETY / AGITATION Last administered on 07/05/16 23:27; Start 07/05/16 at 23:00 Furosemide (Lasix) 20 mg DAILY PO Last administered on 07/06/16 09:39; Start 07/06/16 at 09:00 Lisinopril (Prinivil) 20 mg DAILY PO Last administered on 07/06/16 09:39; Start 07/06/16 at 09:00 Nitroglycerin (Nitrostat) 0.4 mg PRN DAILY PRN SL chest pain; Start 07/05/16 at 23:00 Non-Formulary Medication 2 puff PRN Q6HRS PRN INH SHORTNESS OF BREATH; Start at 23:00; Status UNV Escitalopram Oxalate (Lexapro) 20 mg QHS PO ; Start 07/06/16 at 21:00 Non-Formulary Medication 1 puff BID IH ; Start 07/06/16 at 09:00; Status UNV Oxycodone/ Acetaminophen (Percocet 5/325) 1 tab PRN Q6HRS PRN PO SEVERE PAIN Last administered on 07/06/16 12:34; Start 07/05/16 at 23:00 Albuterol Sulfate (Ventolin Neb Soln) 2.5 mg RTQID NEB Last administered on 11:09; Start 07/06/16 at 08:00 Albuterol Sulfate (Ventolin Neb Soln) 2.5 mg PRN Q4HRS PRN NEB SHORTNESS OF BREATH; Start 07/05/16 at 23:15 Budesonide (Pulmicort) 0.5 mg RTBID NEB Last administered on 07/06/16 08:11; Start 07/06/16 at 08:00 Aspirin (Navi Aspirin) 325 mg DAILYWBKFT PO Last administered on 07/06/16 09: 36; Start 07/06/16 at 09:30 Diazepam (Valium) 10 mg 1X ONCE PO Last administered on 07/06/16 09:36; Start 07/06/16 at 09:30; Stop 07/06/16 at 09:31; Status DC Nicotine (Nicoderm Cq 21mg) 1 patch DAILY TD Last administered on 07/06/16 09: 36; Start 07/06/16 at 10:00 Nicotine Polacrilex (Nicorette Gum) 1 each PRN Q1HR PRN BC SMOKING CESSATION; Start 07/06/16 at 09:30 Active Scripts Active Diflucan (Fluconazole) 150 Mg Tablet 1 Tab PO ONCE [place] 5-325 Tablet (Acetaminophen/Hydrocodone Bitart) 1 Each Tablet 1 Tab PO PRN Q6HRS PRN Amoxicillin 500 Mg Capsule 500 Mg PO TID Cyclobenzaprine Hcl 10 Mg Tablet 1 Tab PO TID Naproxen 250 Mg Tablet 250 Mg PO BID PRN Cyclobenzaprine Hcl 10 Mg Tablet 10 Mg PO TID PRN Amoxicillin 875 Mg Tablet 1 Tab PO BID [place] 5-325 Tablet (Acetaminophen/Hydrocodone Bitart) 1 Each Tablet 1-2 Tab PO Q4-6HRS Reported Lopressor (Metoprolol Tartrate) 100 Mg Tablet 100 Mg PO BID Lisinopril 20 Mg Tablet 1 Tab PO DAILY Advair 250-50 Diskus (Fluticasone/Salmeterol) 1 Each Disk.w.dev 1 Puff IH BID Lexapro (Escitalopram Oxalate) 20 Mg Tablet 1 Tab PO HS Digoxin 250 Mcg Tablet 1 Tab PO DAILY Genteal Tears 0.1%-0.3% Drop (Dextran 70/Hypromellose) 15 Ml Drops 15 Ml OP PRN PRN Atorvastatin Calcium 40 Mg Tablet 1 Tab PO DAILY Aspirin 81 Mg Tab.chew 1 Tab PO DAILY Ventolin Hfa Inhaler (Albuterol Sulfate) 18 Gm Hfa.aer.ad 2 Puff INH PRN Q6HRS PRN Trazodone Hcl 50 Mg Tablet 1 Tab PO QHS Clonazepam 0.5 Mg Tablet 1 Tab PO PRN BID PRN Percocet 7.5-325 Mg Tablet (Oxycodone/Acetaminophen) 1 Each Tablet 1 Tab PO PRN Q4HRS PRN Ibuprofen 800 Mg Tablet 1 Tab PO TID NITROGLYCERIN SubLingual (Nitroglycerin) 0.4 Mg Tab.subl 1 Tab SL UD Lasix (Furosemide) 20 Mg Tablet 2 Tab PO DAILY Lanoxin (Digoxin) 125 Mcg Tablet 125 Mcg PO DAILY Lopressor (Metoprolol Tartrate) 100 Mg Tablet 100 Mg PO BID Allergies Allergies: Coded Allergies: No Known Drug Allergies (Unverified , 11/28/14) ROS Review of System Negative for fevers, chills, weight loss, shortness of breath, chest pain, indigestion, hematochezia, melena, dysuria. Full 14-point review systems is negative. Physical Exam Physical Examination PHYSICAL EXAMINATION: Vital signs: see above. General appearance is normal and in no acute distress. HEENT: Normocephalic and nontraumatic. Eyes, nose, ears, and throat are unremarkable. Neck is supple. No lymphadenopathy. No bruits are heard over the carotid artery. No crepitus. NEUROLOGICAL EXAMINATION: Mental Status Examination: Alert. Oriented to time, place, and person. Answers questions and follows commends. Pupils are equal round and reactive to light and accommodation. Extraocular movements are intact. Visual field exam shows no defect on the direct confrontation. No motor or sensory deficits on the facial exam. Uvula in the midline and the soft palate elevated symmetrically. No deviation of the tongue to any direction. Gross hearing is normal. Shoulder shrug normal. Muscle tone is normal. Muscle strength is 5/5. Deep tendon reflexes are 1+. Plantar reflex is flexor bilaterally. Apkqbo-is-xiit test performance is accurate. Alternative movements are accurate. Romberg test is negative. Gait is normal. Sensory exam shows no deficits. No cerebellar signs are elicited. Vitals VITALS Vital Signs Date Time Temp Pulse Resp B/P Pulse Ox O2 Delivery O2 Flow Rate FiO2 07/06/16 11:20 98.5 101 22 119/97 97 Simple Mask 3.0 98.5 Labs Labs Laboratory Tests Test 07/05/16 17:11 07/05/16 17:20 07/06/16 01:52 07/06/16 07:31 Glucose (Fingerstick) 106mg/dL (70-99) White Blood Count 5.8x10^3/uL (4.0-11.0) 8.3x10^3/uL (4.0-11.0) Red Blood Count 4.73x10^6/uL (3.50-5.40) 5.11x10^6/uL (3.50-5.40) Hemoglobin 16.6g/dL (12.0-15.5) 18.1g/dL (12.0-15.5) Hematocrit 50.4% (36.0-47.0) 54.6% (36.0-47.0) Mean Corpuscular Volume 107fL (79-100) 107fL (79-100) Mean Corpuscular Hemoglobin 35pg (25-35) 35pg (25-35) Mean Corpuscular Hemoglobin Concent 33g/dL (31-37) 33g/dL (31-37) Red Cell Distribution Width 14.1% (11.5-14.5) 14.1% (11.5-14.5) Platelet Count 144x10^3/uL (140-400) 165x10^3/uL (140-400) Neutrophils (%) (Auto) 56% (31-73) 72% (31-73) Lymphocytes (%) (Auto) 32% (24-48) 19% (24-48) Monocytes (%) (Auto) 9% (0-9) 7% (0-9) Eosinophils (%) (Auto) 3% (0-3) 2% (0-3) Basophils (%) (Auto) 1% (0-3) 1% (0-3) Neutrophils # (Auto) 3.2x10^3uL (1.8-7.7) 5.9x10^3uL (1.8-7.7) Lymphocytes # (Auto) 1.8x10^3/uL (1.0-4.8) 1.5x10^3/uL (1.0-4.8) Monocytes # (Auto) 0.5x10^3/uL (0.0-1.1) 0.6x10^3/uL (0.0-1.1) Eosinophils # (Auto) 0.2x10^3/uL (0.0-0.7) 0.1x10^3/uL (0.0-0.7) Basophils # (Auto) 0.0x10^3/uL (0.0-0.2) 0.1x10^3/uL (0.0-0.2) Prothrombin Time 11.8SEC (11.7-14.0) Prothromb Time International Ratio 0.9 (0.8-1.1) Activated Partial Thromboplast Time 31SEC (24-38) Sodium Level 141mmol/L (136-145) 144mmol/L (136-145) Potassium Level 3.9mmol/L (3.5-5.1) 4.5mmol/L (3.5-5.1) Chloride Level 104mmol/L (98-107) 106mmol/L (98-107) Carbon Dioxide Level 30mmol/L (21-32) 29mmol/L (21-32) Anion Gap 7 (6-14) 9 (6-14) Blood Urea Nitrogen 6mg/dL (7-20) 7mg/dL (7-20) Creatinine 0.8mg/dL (0.6-1.0) 0.8mg/dL (0.6-1.0) Estimated GFR (Cockcroft-Gault) 74.5 74.5 BUN/Creatinine Ratio 8 (6-20) Glucose Level 105mg/dL (70-99) 143mg/dL (70-99) Calcium Level 9.0mg/dL (8.5-10.1) 9.2mg/dL (8.5-10.1) Total Bilirubin 0.3mg/dL (0.2-1.0) Aspartate Amino Transf (AST/SGOT) 15U/L (15-37) Alanine Aminotransferase (ALT/SGPT) 16U/L (14-59) Alkaline Phosphatase 129U/L (46-116) Troponin I Quantitative < 0.017ng/mL (0.000-0.055) 0.023ng/mL (0.000-0.055) 0.018ng/mL (0.000-0.055) Total Protein 6.9g/dL (6.4-8.2) Albumin 3.2g/dL (3.4-5.0) Albumin/Globulin Ratio 0.9 (1.0-1.7) Triglycerides Level 95mg/dL (0-150) Cholesterol Level 239mg/dL (0-200) LDL Cholesterol, Calculated 172mg/dL (0-100) VLDL Cholesterol, Calculated 19mg/dL (0-40) HDL Cholesterol 48mg/dL (40-60) Cholesterol/HDL Ratio 5.0 Vitamin B12 Level 302pg/mL (247-911) Serum Folate 5.02ng/ml (3.2-20.0) Laboratory Tests Test 07/05/16 17:11 07/05/16 17:20 07/06/16 01:52 07/06/16 07:31 Glucose (Fingerstick) 106mg/dL (70-99) White Blood Count 5.8x10^3/uL (4.0-11.0) 8.3x10^3/uL (4.0-11.0) Red Blood Count 4.73x10^6/uL (3.50-5.40) 5.11x10^6/uL (3.50-5.40) Hemoglobin 16.6g/dL (12.0-15.5) 18.1g/dL (12.0-15.5) Hematocrit 50.4% (36.0-47.0) 54.6% (36.0-47.0) Mean Corpuscular Volume 107fL (79-100) 107fL (79-100) Mean Corpuscular Hemoglobin 35pg (25-35) 35pg (25-35) Mean Corpuscular Hemoglobin Concent 33g/dL (31-37) 33g/dL (31-37) Red Cell Distribution Width 14.1% (11.5-14.5) 14.1% (11.5-14.5) Platelet Count 144x10^3/uL (140-400) 165x10^3/uL (140-400) Neutrophils (%) (Auto) 56% (31-73) 72% (31-73) Lymphocytes (%) (Auto) 32% (24-48) 19% (24-48) Monocytes (%) (Auto) 9% (0-9) 7% (0-9) Eosinophils (%) (Auto) 3% (0-3) 2% (0-3) Basophils (%) (Auto) 1% (0-3) 1% (0-3) Neutrophils # (Auto) 3.2x10^3uL (1.8-7.7) 5.9x10^3uL (1.8-7.7) Lymphocytes # (Auto) 1.8x10^3/uL (1.0-4.8) 1.5x10^3/uL (1.0-4.8) Monocytes # (Auto) 0.5x10^3/uL (0.0-1.1) 0.6x10^3/uL (0.0-1.1) Eosinophils # (Auto) 0.2x10^3/uL (0.0-0.7) 0.1x10^3/uL (0.0-0.7) Basophils # (Auto) 0.0x10^3/uL (0.0-0.2) 0.1x10^3/uL (0.0-0.2) Prothrombin Time 11.8SEC (11.7-14.0) Prothromb Time International Ratio 0.9 (0.8-1.1) Activated Partial Thromboplast Time 31SEC (24-38) Sodium Level 141mmol/L (136-145) 144mmol/L (136-145) Potassium Level 3.9mmol/L (3.5-5.1) 4.5mmol/L (3.5-5.1) Chloride Level 104mmol/L (98-107) 106mmol/L (98-107) Carbon Dioxide Level 30mmol/L (21-32) 29mmol/L (21-32) Anion Gap 7 (6-14) 9 (6-14) Blood Urea Nitrogen 6mg/dL (7-20) 7mg/dL (7-20) Creatinine 0.8mg/dL (0.6-1.0) 0.8mg/dL (0.6-1.0) Estimated GFR (Cockcroft-Gault) 74.5 74.5 BUN/Creatinine Ratio 8 (6-20) Glucose Level 105mg/dL (70-99) 143mg/dL (70-99) Calcium Level 9.0mg/dL (8.5-10.1) 9.2mg/dL (8.5-10.1) Total Bilirubin 0.3mg/dL (0.2-1.0) Aspartate Amino Transf (AST/SGOT) 15U/L (15-37) Alanine Aminotransferase (ALT/SGPT) 16U/L (14-59) Alkaline Phosphatase 129U/L (46-116) Troponin I Quantitative < 0.017ng/mL (0.000-0.055) 0.023ng/mL (0.000-0.055) 0.018ng/mL (0.000-0.055) Total Protein 6.9g/dL (6.4-8.2) Albumin 3.2g/dL (3.4-5.0) Albumin/Globulin Ratio 0.9 (1.0-1.7) Triglycerides Level 95mg/dL (0-150) Cholesterol Level 239mg/dL (0-200) LDL Cholesterol, Calculated 172mg/dL (0-100) VLDL Cholesterol, Calculated 19mg/dL (0-40) HDL Cholesterol 48mg/dL (40-60) Cholesterol/HDL Ratio 5.0 Vitamin B12 Level 302pg/mL (247-911) Serum Folate 5.02ng/ml (3.2-20.0) Images Images Head CT negative Brain MRI: Comparison is made to a CT scan of the head dated 07/05/2016. Some of the images are degraded by patient motion. The ventricles and sulci are within normal limits in size and configuration. Patchy and several small scattered areas of abnormally increased signal intensity are seen within the periventricular and subcortical white matter both cerebral hemispheres on the FLAIR and T2 weighted images. These measure 2 millimeters to 1 centimeter in size. Their MRI appearance is nonspecific. They could represent areas of relatively mild small vessel ischemic disease. They can be seen in patients with a history of migraine headaches. They could also be seen in the setting of a demyelinating disorder such as multiple sclerosis. Clinical correlation is recommended. No acute parenchymal abnormality is definitely seen. There is no MRI evidence of acute ischemia/infarction. No extra-axial fluid collection is noted. The paranasal sinuses are essentially clear. There are minimal bilateral mastoid effusions, right greater than left. Normal flow voids are seen within the major vascular structures surrounding the brain parenchyma. IMPRESSION 1. Patchy and several small scattered areas of abnormally increased signal intensity are seen within the white matter both cerebral hemispheres. Their MRI appearance is nonspecific as outlined above. 2. No acute parenchymal abnormality is definitely seen. Carotid Dopplers pending Assessment/Plan Assessment/Plan Impression: Stroke symptoms, negative workup so far Demyelinating changes on MRI most likely related to hypertensive small-vessel cerebrovascular disease.I find no evidence of multiple sclerosis. Extensive cardiac history Recommendations: Okay for discharge after carotid Doppler studies returned Continue daily aspirin. She was also a clopidogrel failure in the past. Follow up with her physicians at Thank you for letting me up with the patient's care. MERLYN MAKI MD Jul 06, 2016 12:44
--- NOTE | 2016-07-06 14:41 | PDOC ---
PROGRESS NOTES Chief Complaint Chief Complaint 1. chest pain, likely not ACUTE coronary dz 2. h/o CAD status post [place] and CABG at age 36, 3. right facial numbness 4. CHF, 5. hypertension 6. hypercholesterolemia, 7 TIA, 8. COPD, night O2 dependent, p 9. eripheral vascular disease with right femoral artery stent. plan: 1. fu with card and neuro 2. MRI neg for acute stroke on asa 325mg daily 3. card tries to get [facility] records first 4. cont home meds dvt ppx History of Present Illness History of Present Illness feels ok Vitals Vitals Vital Signs Date Time Temp Pulse Resp B/P Pulse Ox O2 Delivery O2 Flow Rate FiO2 07/06/16 11:20 98.5 101 22 119/97 97 Simple Mask 3.0 98.5 Physical Exam General: Alert, Oriented X3, Cooperative Heart: Regular rate, Normal S1, Normal S2 Lungs: Clear, Wheezing Abdomen: Normal bowel sounds, Soft Extremities: No clubbing, No cyanosis Skin: No rashes Labs LABS Laboratory Tests Test 07/05/16 17:11 07/05/16 17:20 07/06/16 01:52 07/06/16 07:31 Glucose (Fingerstick) 106mg/dL (70-99) White Blood Count 5.8x10^3/uL (4.0-11.0) 8.3x10^3/uL (4.0-11.0) Red Blood Count 4.73x10^6/uL (3.50-5.40) 5.11x10^6/uL (3.50-5.40) Hemoglobin 16.6g/dL (12.0-15.5) 18.1g/dL (12.0-15.5) Hematocrit 50.4% (36.0-47.0) 54.6% (36.0-47.0) Mean Corpuscular Volume 107fL (79-100) 107fL (79-100) Mean Corpuscular Hemoglobin 35pg (25-35) 35pg (25-35) Mean Corpuscular Hemoglobin Concent 33g/dL (31-37) 33g/dL (31-37) Red Cell Distribution Width 14.1% (11.5-14.5) 14.1% (11.5-14.5) Platelet Count 144x10^3/uL (140-400) 165x10^3/uL (140-400) Neutrophils (%) (Auto) 56% (31-73) 72% (31-73) Lymphocytes (%) (Auto) 32% (24-48) 19% (24-48) Monocytes (%) (Auto) 9% (0-9) 7% (0-9) Eosinophils (%) (Auto) 3% (0-3) 2% (0-3) Basophils (%) (Auto) 1% (0-3) 1% (0-3) Neutrophils # (Auto) 3.2x10^3uL (1.8-7.7) 5.9x10^3uL (1.8-7.7) Lymphocytes # (Auto) 1.8x10^3/uL (1.0-4.8) 1.5x10^3/uL (1.0-4.8) Monocytes # (Auto) 0.5x10^3/uL (0.0-1.1) 0.6x10^3/uL (0.0-1.1) Eosinophils # (Auto) 0.2x10^3/uL (0.0-0.7) 0.1x10^3/uL (0.0-0.7) Basophils # (Auto) 0.0x10^3/uL (0.0-0.2) 0.1x10^3/uL (0.0-0.2) Prothrombin Time 11.8SEC (11.7-14.0) Prothromb Time International Ratio 0.9 (0.8-1.1) Activated Partial Thromboplast Time 31SEC (24-38) Sodium Level 141mmol/L (136-145) 144mmol/L (136-145) Potassium Level 3.9mmol/L (3.5-5.1) 4.5mmol/L (3.5-5.1) Chloride Level 104mmol/L (98-107) 106mmol/L (98-107) Carbon Dioxide Level 30mmol/L (21-32) 29mmol/L (21-32) Anion Gap 7 (6-14) 9 (6-14) Blood Urea Nitrogen 6mg/dL (7-20) 7mg/dL (7-20) Creatinine 0.8mg/dL (0.6-1.0) 0.8mg/dL (0.6-1.0) Estimated GFR (Cockcroft-Gault) 74.5 74.5 BUN/Creatinine Ratio 8 (6-20) Glucose Level 105mg/dL (70-99) 143mg/dL (70-99) Calcium Level 9.0mg/dL (8.5-10.1) 9.2mg/dL (8.5-10.1) Total Bilirubin 0.3mg/dL (0.2-1.0) Aspartate Amino Transf (AST/SGOT) 15U/L (15-37) Alanine Aminotransferase (ALT/SGPT) 16U/L (14-59) Alkaline Phosphatase 129U/L (46-116) Troponin I Quantitative < 0.017ng/mL (0.000-0.055) 0.023ng/mL (0.000-0.055) 0.018ng/mL (0.000-0.055) Total Protein 6.9g/dL (6.4-8.2) Albumin 3.2g/dL (3.4-5.0) Albumin/Globulin Ratio 0.9 (1.0-1.7) Triglycerides Level 95mg/dL (0-150) Cholesterol Level 239mg/dL (0-200) LDL Cholesterol, Calculated 172mg/dL (0-100) VLDL Cholesterol, Calculated 19mg/dL (0-40) HDL Cholesterol 48mg/dL (40-60) Cholesterol/HDL Ratio 5.0 Vitamin B12 Level 302pg/mL (247-911) Serum Folate 5.02ng/ml (3.2-20.0) Review of Systems Review of Systems no fever, chills, sob or chest pain Assessment and Plan Assessmemt and Plan Problems Medical Problems: (1) Chest pain Status: Acute (2) Stroke Status: Acute Problems: Comment Review of Relevant I have reviewed the following items vonnie (where applicable) has been applied. Labs Laboratory Tests Test 07/05/16 17:11 07/05/16 17:20 07/06/16 01:52 07/06/16 07:31 Glucose (Fingerstick) 106mg/dL (70-99) White Blood Count 5.8x10^3/uL (4.0-11.0) 8.3x10^3/uL (4.0-11.0) Red Blood Count 4.73x10^6/uL (3.50-5.40) 5.11x10^6/uL (3.50-5.40) Hemoglobin 16.6g/dL (12.0-15.5) 18.1g/dL (12.0-15.5) Hematocrit 50.4% (36.0-47.0) 54.6% (36.0-47.0) Mean Corpuscular Volume 107fL (79-100) 107fL (79-100) Mean Corpuscular Hemoglobin 35pg (25-35) 35pg (25-35) Mean Corpuscular Hemoglobin Concent 33g/dL (31-37) 33g/dL (31-37) Red Cell Distribution Width 14.1% (11.5-14.5) 14.1% (11.5-14.5) Platelet Count 144x10^3/uL (140-400) 165x10^3/uL (140-400) Neutrophils (%) (Auto) 56% (31-73) 72% (31-73) Lymphocytes (%) (Auto) 32% (24-48) 19% (24-48) Monocytes (%) (Auto) 9% (0-9) 7% (0-9) Eosinophils (%) (Auto) 3% (0-3) 2% (0-3) Basophils (%) (Auto) 1% (0-3) 1% (0-3) Neutrophils # (Auto) 3.2x10^3uL (1.8-7.7) 5.9x10^3uL (1.8-7.7) Lymphocytes # (Auto) 1.8x10^3/uL (1.0-4.8) 1.5x10^3/uL (1.0-4.8) Monocytes # (Auto) 0.5x10^3/uL (0.0-1.1) 0.6x10^3/uL (0.0-1.1) Eosinophils # (Auto) 0.2x10^3/uL (0.0-0.7) 0.1x10^3/uL (0.0-0.7) Basophils # (Auto) 0.0x10^3/uL (0.0-0.2) 0.1x10^3/uL (0.0-0.2) Prothrombin Time 11.8SEC (11.7-14.0) Prothromb Time International Ratio 0.9 (0.8-1.1) Activated Partial Thromboplast Time 31SEC (24-38) Sodium Level 141mmol/L (136-145) 144mmol/L (136-145) Potassium Level 3.9mmol/L (3.5-5.1) 4.5mmol/L (3.5-5.1) Chloride Level 104mmol/L (98-107) 106mmol/L (98-107) Carbon Dioxide Level 30mmol/L (21-32) 29mmol/L (21-32) Anion Gap 7 (6-14) 9 (6-14) Blood Urea Nitrogen 6mg/dL (7-20) 7mg/dL (7-20) Creatinine 0.8mg/dL (0.6-1.0) 0.8mg/dL (0.6-1.0) Estimated GFR (Cockcroft-Gault) 74.5 74.5 BUN/Creatinine Ratio 8 (6-20) Glucose Level 105mg/dL (70-99) 143mg/dL (70-99) Calcium Level 9.0mg/dL (8.5-10.1) 9.2mg/dL (8.5-10.1) Total Bilirubin 0.3mg/dL (0.2-1.0) Aspartate Amino Transf (AST/SGOT) 15U/L (15-37) Alanine Aminotransferase (ALT/SGPT) 16U/L (14-59) Alkaline Phosphatase 129U/L (46-116) Troponin I Quantitative < 0.017ng/mL (0.000-0.055) 0.023ng/mL (0.000-0.055) 0.018ng/mL (0.000-0.055) Total Protein 6.9g/dL (6.4-8.2) Albumin 3.2g/dL (3.4-5.0) Albumin/Globulin Ratio 0.9 (1.0-1.7) Triglycerides Level 95mg/dL (0-150) Cholesterol Level 239mg/dL (0-200) LDL Cholesterol, Calculated 172mg/dL (0-100) VLDL Cholesterol, Calculated 19mg/dL (0-40) HDL Cholesterol 48mg/dL (40-60) Cholesterol/HDL Ratio 5.0 Vitamin B12 Level 302pg/mL (247-911) Serum Folate 5.02ng/ml (3.2-20.0) Laboratory Tests Test 07/05/16 17:11 07/05/16 17:20 07/06/16 01:52 07/06/16 07:31 Glucose (Fingerstick) 106mg/dL (70-99) White Blood Count 5.8x10^3/uL (4.0-11.0) 8.3x10^3/uL (4.0-11.0) Red Blood Count 4.73x10^6/uL (3.50-5.40) 5.11x10^6/uL (3.50-5.40) Hemoglobin 16.6g/dL (12.0-15.5) 18.1g/dL (12.0-15.5) Hematocrit 50.4% (36.0-47.0) 54.6% (36.0-47.0) Mean Corpuscular Volume 107fL (79-100) 107fL (79-100) Mean Corpuscular Hemoglobin 35pg (25-35) 35pg (25-35) Mean Corpuscular Hemoglobin Concent 33g/dL (31-37) 33g/dL (31-37) Red Cell Distribution Width 14.1% (11.5-14.5) 14.1% (11.5-14.5) Platelet Count 144x10^3/uL (140-400) 165x10^3/uL (140-400) Neutrophils (%) (Auto) 56% (31-73) 72% (31-73) Lymphocytes (%) (Auto) 32% (24-48) 19% (24-48) Monocytes (%) (Auto) 9% (0-9) 7% (0-9) Eosinophils (%) (Auto) 3% (0-3) 2% (0-3) Basophils (%) (Auto) 1% (0-3) 1% (0-3) Neutrophils # (Auto) 3.2x10^3uL (1.8-7.7) 5.9x10^3uL (1.8-7.7) Lymphocytes # (Auto) 1.8x10^3/uL (1.0-4.8) 1.5x10^3/uL (1.0-4.8) Monocytes # (Auto) 0.5x10^3/uL (0.0-1.1) 0.6x10^3/uL (0.0-1.1) Eosinophils # (Auto) 0.2x10^3/uL (0.0-0.7) 0.1x10^3/uL (0.0-0.7) Basophils # (Auto) 0.0x10^3/uL (0.0-0.2) 0.1x10^3/uL (0.0-0.2) Prothrombin Time 11.8SEC (11.7-14.0) Prothromb Time International Ratio 0.9 (0.8-1.1) Activated Partial Thromboplast Time 31SEC (24-38) Sodium Level 141mmol/L (136-145) 144mmol/L (136-145) Potassium Level 3.9mmol/L (3.5-5.1) 4.5mmol/L (3.5-5.1) Chloride Level 104mmol/L (98-107) 106mmol/L (98-107) Carbon Dioxide Level 30mmol/L (21-32) 29mmol/L (21-32) Anion Gap 7 (6-14) 9 (6-14) Blood Urea Nitrogen 6mg/dL (7-20) 7mg/dL (7-20) Creatinine 0.8mg/dL (0.6-1.0) 0.8mg/dL (0.6-1.0) Estimated GFR (Cockcroft-Gault) 74.5 74.5 BUN/Creatinine Ratio 8 (6-20) Glucose Level 105mg/dL (70-99) 143mg/dL (70-99) Calcium Level 9.0mg/dL (8.5-10.1) 9.2mg/dL (8.5-10.1) Total Bilirubin 0.3mg/dL (0.2-1.0) Aspartate Amino Transf (AST/SGOT) 15U/L (15-37) Alanine Aminotransferase (ALT/SGPT) 16U/L (14-59) Alkaline Phosphatase 129U/L (46-116) Troponin I Quantitative < 0.017ng/mL (0.000-0.055) 0.023ng/mL (0.000-0.055) 0.018ng/mL (0.000-0.055) Total Protein 6.9g/dL (6.4-8.2) Albumin 3.2g/dL (3.4-5.0) Albumin/Globulin Ratio 0.9 (1.0-1.7) Triglycerides Level 95mg/dL (0-150) Cholesterol Level 239mg/dL (0-200) LDL Cholesterol, Calculated 172mg/dL (0-100) VLDL Cholesterol, Calculated 19mg/dL (0-40) HDL Cholesterol 48mg/dL (40-60) Cholesterol/HDL Ratio 5.0 Vitamin B12 Level 302pg/mL (247-911) Serum Folate 5.02ng/ml (3.2-20.0) Medications Current Medications Nitroglycerin (Nitrostat) 0.4 mg PRN Q5MIN PRN SL CHEST PAIN; Start 07/05/16 at 19:45; Stop 07/06/16 at 19:44 Aspirin (Children'S Aspirin) 81 mg DAILY PO Last administered on 07/06/16 09: 34; Start 07/06/16 at 09:00; Stop 07/06/16 at 09:26; Status DC Atorvastatin Calcium (Lipitor) 40 mg QHS PO ; Start 07/06/16 at 21:00 Clonazepam (Klonopin) 0.5 mg PRN BID PRN PO ANXIETY / AGITATION Last administered on 07/05/16 23:27; Start 07/05/16 at 23:00 Furosemide (Lasix) 20 mg DAILY PO Last administered on 07/06/16 09:39; Start 07/06/16 at 09:00 Lisinopril (Prinivil) 20 mg DAILY PO Last administered on 07/06/16 09:39; Start 07/06/16 at 09:00 Nitroglycerin (Nitrostat) 0.4 mg PRN DAILY PRN SL chest pain; Start 07/05/16 at 23:00 Non-Formulary Medication 2 puff PRN Q6HRS PRN INH SHORTNESS OF BREATH; Start at 23:00; Status UNV Escitalopram Oxalate (Lexapro) 20 mg QHS PO ; Start 07/06/16 at 21:00 Non-Formulary Medication 1 puff BID IH ; Start 07/06/16 at 09:00; Status UNV Oxycodone/ Acetaminophen (Percocet 5/325) 1 tab PRN Q6HRS PRN PO SEVERE PAIN Last administered on 07/06/16 12:34; Start 07/05/16 at 23:00 Albuterol Sulfate (Ventolin Neb Soln) 2.5 mg RTQID NEB Last administered on 11:09; Start 07/06/16 at 08:00 Albuterol Sulfate (Ventolin Neb Soln) 2.5 mg PRN Q4HRS PRN NEB SHORTNESS OF BREATH; Start 07/05/16 at 23:15 Budesonide (Pulmicort) 0.5 mg RTBID NEB Last administered on 07/06/16 08:11; Start 07/06/16 at 08:00 Aspirin (Navi Aspirin) 325 mg DAILYWBKFT PO Last administered on 07/06/16 09: 36; Start 07/06/16 at 09:30 Diazepam (Valium) 10 mg 1X ONCE PO Last administered on 07/06/16 09:36; Start 07/06/16 at 09:30; Stop 07/06/16 at 09:31; Status DC Nicotine (Nicoderm Cq 21mg) 1 patch DAILY TD Last administered on 07/06/16 09: 36; Start 07/06/16 at 10:00 Nicotine Polacrilex (Nicorette Gum) 1 each PRN Q1HR PRN BC SMOKING CESSATION; Start 07/06/16 at 09:30 Active Scripts Active Diflucan (Fluconazole) 150 Mg Tablet 1 Tab PO ONCE [place] 5-325 Tablet (Acetaminophen/Hydrocodone Bitart) 1 Each Tablet 1 Tab PO PRN Q6HRS PRN Amoxicillin 500 Mg Capsule 500 Mg PO TID Cyclobenzaprine Hcl 10 Mg Tablet 1 Tab PO TID Naproxen 250 Mg Tablet 250 Mg PO BID PRN Cyclobenzaprine Hcl 10 Mg Tablet 10 Mg PO TID PRN Amoxicillin 875 Mg Tablet 1 Tab PO BID [place] 5-325 Tablet (Acetaminophen/Hydrocodone Bitart) 1 Each Tablet 1-2 Tab PO Q4-6HRS Reported Lopressor (Metoprolol Tartrate) 100 Mg Tablet 100 Mg PO BID Lisinopril 20 Mg Tablet 1 Tab PO DAILY Advair 250-50 Diskus (Fluticasone/Salmeterol) 1 Each Disk.w.dev 1 Puff IH BID Lexapro (Escitalopram Oxalate) 20 Mg Tablet 1 Tab PO HS Digoxin 250 Mcg Tablet 1 Tab PO DAILY Genteal Tears 0.1%-0.3% Drop (Dextran 70/Hypromellose) 15 Ml Drops 15 Ml OP PRN PRN Atorvastatin Calcium 40 Mg Tablet 1 Tab PO DAILY Aspirin 81 Mg Tab.chew 1 Tab PO DAILY Ventolin Hfa Inhaler (Albuterol Sulfate) 18 Gm Hfa.aer.ad 2 Puff INH PRN Q6HRS PRN Trazodone Hcl 50 Mg Tablet 1 Tab PO QHS Clonazepam 0.5 Mg Tablet 1 Tab PO PRN BID PRN Percocet 7.5-325 Mg Tablet (Oxycodone/Acetaminophen) 1 Each Tablet 1 Tab PO PRN Q4HRS PRN Ibuprofen 800 Mg Tablet 1 Tab PO TID NITROGLYCERIN SubLingual (Nitroglycerin) 0.4 Mg Tab.subl 1 Tab SL UD Lasix (Furosemide) 20 Mg Tablet 2 Tab PO DAILY Lanoxin (Digoxin) 125 Mcg Tablet 125 Mcg PO DAILY Lopressor (Metoprolol Tartrate) 100 Mg Tablet 100 Mg PO BID Vitals/I & O Vital Sign - Last 24 Hours 07/05/16 07/05/16 07/05/16 07/05/16 17:15 17:49 18:19 18:45 Temp 98.3 98.3 Pulse 101 84 76 Resp 16 24 23 B/P 172/92 147/76 141/82 Pulse Ox 98 96 92 78 O2 Delivery Room Air Room Air Room Air Room Air 07/05/16 07/05/16 07/05/16 07/05/16 18:49 21:15 23:27 23:35 Temp 97.0 97.9 97.0 97.9 Pulse 62 81 75 Resp 13 20 20 B/P 169/74 154/81 148/71 Pulse Ox 93 93 O2 Delivery Nasal Cannula Nasal Cannula Simple Mask Simple Mask O2 Flow Rate 3 3.0 3.0 3.0 07/05/16 07/06/16 07/06/16 07/06/16 23:49 00:27 03:00 07:35 Temp 98.1 98.4 98.1 98.4 Pulse 99 89 Resp 18 20 B/P 100/44 139/84 Pulse Ox 93 89 O2 Delivery Mask Simple Mask Simple Mask Simple Mask O2 Flow Rate 3.0 3.0 3.0 3.0 07/06/16 07/06/16 07/06/16 07/06/16 08:00 08:11 09:39 11:09 Pulse 89 B/P 139/84 Pulse Ox 97 91 O2 Delivery Room Air Nasal Cannula Nasal Cannula O2 Flow Rate 3.0 3.0 07/06/16 11:20 Temp 98.5 98.5 Pulse 101 Resp 22 B/P 119/97 Pulse Ox 97 O2 Delivery Simple Mask O2 Flow Rate 3.0 Intake and Output 07/05/16 07/05/16 07/06/16 15:00 23:00 07:00 Intake Total 240 ml Balance 240 ml JONATHAN HARO MD Jul 06, 2016 14:41
--- NOTE | 2016-07-06 14:57 | RAD ---
Carotid ultrasound, 07/06/2016: History: CVA Duplex evaluation of the carotid arteries in the neck was performed including grayscale, color-flow and spectral Doppler analysis. There is mild atherosclerotic plaquing at the carotid bifurcations. The peak systolic velocity in the right internal carotid artery is 108 cm/s with an end-diastolic velocity of 19 cm/s. The peak systolic velocity in the left internal carotid artery is 83 cm/s with an end-diastolic velocity of 22 cm/s. These Doppler findings do not suggest a hemodynamically significant carotid stenosis. Antegrade flow is present in both vertebral arteries in the neck. IMPRESSION: Mild atherosclerotic plaquing at both carotid bifurcations with underlying luminal narrowing in the 0-50% diameter range bilaterally. Note: Stenosis calculations for CT, MRA and conventional angiography are based upon determination of the distal ICA diameter in accordance with the NASCET methodology. Stenosis calculations for Doppler studies are derived from validated velocity criteria which are known to correlate with NASCET methodology of determining stenosis.
[2016-07-06] MEDS ORDERED: ENOXAPARIN 40 MG/0.4 ML DISP.SYRIN. SQ SCH (15:00)
--- NOTE | 2016-07-06 15:47 | CARD ---
APPROVED REPORT EXAM: Two-dimensional and M-mode echocardiogram with Doppler and color Doppler. Other Information Quality : Average Rhythm : NSR INDICATION CVA/TIA Echo Enhancing Agent Indication: Rule Out Septal Defect Agent/Amount Used: Agitated Saline 8mL 2D DIMENSIONS RVDd3.5 (2.9-3.5cm)Left Atrium(2D)4.0 (1.6-4.0cm) IVSd1.3 (0.7-1.1cm)Aortic Root(2D)2.8 (2.0-3.7cm) LVDd5.0 (3.9-5.9cm)LVOT Diameter2.0 (1.8-2.4cm) PWd1.3 (0.7-1.1cm)LVDs3.8 (2.5-4.0cm) FS (%) 22.4 %SV52.0 ml LVEF(%)44.9 (>50%) Aortic Valve AoV Peak [place].100.8cm/sAoV VTI18.6cm AO Peak GR.4.1mmHgLVOT Peak [place].95.5cm/s AO Mean GR.2mmHgAVA (VMAX)3.02cm2 Mitral Valve MV E Ytbtkizd59.7cm/sMV E Peak Gr.5mmHg MV DECEL [id number] A Dtfxlpxi82.9cm/s MV E Mean Gr.1mmHgMV [id number] E/A Ratio0.6MV A [id number] MVA (PHT)4.25cm2 Tricuspid Valve TR P. Cnpexntw086gn/sRAP MUFWETTL3gpAk TR Peak Gr.35csJcDUDP28xyTh LEFT VENTRICLE The left ventricle is normal size. There is borderline to mild concentric left ventricular hypertroph y. Left ventricle systolic function is low normal. The Ejection Fraction is 55%. Septal motion consis tent with post-operative state. The lateral wall is not well visualized. The mid to distal inferolate ral wall appears hypokinetic. Tissue Doppler imaging reveals mild left ventricular diastolic dysfunct ion. RIGHT VENTRICLE The right ventricle is normal size. The right ventricular systolic function is normal. ATRIA The left atrium size is normal. The right atrium size is normal. The interatrial septum is intact wit h no evidence for an atrial septal defect or patent foramen ovale as noted on 2-D or Doppler imaging. AORTIC VALVE The aortic valve is normal in structure and function. The aortic valve is trileaflet. Doppler and Col or Flow revealed no significant aortic regurgitation. There is no significant aortic valvular stenosi s. MITRAL VALVE The mitral valve is normal in structure and function. There is no mitral valve stenosis. Doppler and Color Flow revealed no mitral valve regurgitation noted. TRICUSPID VALVE The tricuspid valve is not well visualized. Doppler and Color Flow revealed no tricuspid valve regurg itation noted. There is no tricuspid valve stenosis. PULMONIC VALVE The pulmonic valve is not well visualized. Doppler and Color Flow revealed no pulmonic valvular regur gitation. There is no pulmonic valvular stenosis. GREAT VESSELS The aortic root is normal in size. The IVC is normal in size and collapses >50% with inspiration. PERICARDIAL EFFUSION There is no evidence of significant pericardial effusion. Critical Notification Critical Value: No <Conclusion> Left ventricle systolic function is low normal. The Ejection Fraction is 55%. Septal motion consistent with post-operative state. The lateral wall is not well visualized. The mid to distal inferolateral wall appears hypokinetic. No significant valvular disease.
[2016-07-06] MEDS ORDERED: ASPI325T4 PO (16:16)
--- NOTE | 2016-07-06 16:22 | PDOC3 ---
Discharge Summary [facility] Date of Admission: Jul 05, 2016 Discharge Date: Jul 06, 2016 Admitting Diagnosis 1. chest pain, likely not ACUTE coronary dz, 2/2 anxiety? 2. h/o CAD status post [place] and CABG at age 36, 3. right facial numbness and mild weakness, neuropathy vs. tiny stroke? 4. CHF, 5. hypertension 6. hypercholesterolemia, 7 TIA, 8. COPD, night O2 dependent, p 9. eripheral vascular disease with right femoral artery stent. Problems: Final Diagnosis CONSULTS neuro card Brief Hospital Course 56yo F, with remote h/o stroke in 1990s wo neurologic deficit, CAD with stents and CABG at 36yo, comes for chest pain and right facial and arm numbness and mild weakness. pt has no chest pain now, CE neg. Echo is ok. card on board, ok to dc pt MRI brain neg for acute stroke and carotid US is neg for severe stenosis. pt dc home with asa 325mg daily, fu with own card in [facility] dc time 35min. General: Alert, Oriented X3, Cooperative Heart: Regular rate, Normal S1, Normal S2 Lungs: Clear, Wheezing Abdomen: Normal bowel sounds, Soft Extremities: No clubbing, No cyanosis. right face and upper ext numbness, strength 4/5. Skin: No rashes Problems: Disposition home CONDITION AT DISCHARGE: Improved Diet cardiac Scheduled Amoxicillin (Amoxicillin) 1 TAB PO BID Aspirin (Aspirin) 1 TAB PO DAILY (Reported) Aspirin (Aspirin) 325 MG PO DAILYWBKFT Atorvastatin Calcium (Atorvastatin Calcium) 1 TAB PO DAILY (Reported) Cyclobenzaprine Hcl (Cyclobenzaprine Hcl) 1 TAB PO TID Digoxin (Lanoxin) 125 MCG PO DAILY (Reported) Escitalopram Oxalate (Lexapro) 1 TAB PO HS (Reported) Fluticasone/Salmeterol (Advair 250-50 Diskus) 1 PUFF IH BID (Reported) Furosemide (Lasix) 2 TAB PO DAILY (Reported) Hydrocodone/Apap 5-325 ([place] 5-325 Tablet) 1-2 TAB PO Q4-6HRS Lisinopril (Lisinopril) 1 TAB PO DAILY (Reported) Metoprolol Tartrate (Lopressor) 100 MG PO BID (Reported) Nitroglycerin (NITROGLYCERIN SubLingual) 1 TAB SL UD (Reported) Trazodone Hcl (Trazodone Hcl) 1 TAB PO QHS (Reported) Scheduled PRN Albuterol Sulfate (Ventolin Hfa Inhaler) 2 PUFF INH PRN Q6HRS PRN PRN SHORTNESS OF BREATH (Reported) Clonazepam (Clonazepam) 1 TAB PO PRN BID PRN PRN ANXIETY / AGITATION (Reported) Cyclobenzaprine Hcl (Cyclobenzaprine Hcl) 10 MG PO TID PRN PRN PAIN Dextran 70/Hypromellose (Genteal Tears 0.1%-0.3% Drop) 15 ML OP PRN PRN PRN DRY EYE (Reported) Oxycodone/Apap 7.5-325 (Percocet 7.5-325 Mg Tablet) 1 TAB PO PRN Q4HRS PRN PRN PAIN (Reported) Discontinued Medications Amoxicillin (Amoxicillin) 500 MG PO TID Digoxin (Digoxin) 1 TAB PO DAILY (Reported) Fluconazole (Diflucan) 1 TAB PO ONCE Hydrocodone/Apap 5-325 ([place] 5-325 Tablet) 1 TAB PO PRN Q6HRS PRN PRN PAIN Ibuprofen (Ibuprofen) 1 TAB PO TID (Reported) Metoprolol Tartrate (Lopressor) 100 MG PO BID (Reported) Naproxen (Naproxen) 250 MG PO BID PRN PRN PAIN Follow Up pcp and card in 2 weeks JONATHAN HARO MD Jul 06, 2016 16:22
[2016-07-06] MEDS ORDERED: ESCITALOPRAM 10 MG TABLET. PO SCH (21:00)
[2016-07-06] MEDS ORDERED: ATORVASTATIN CALCIUM 40 MG TABLET. PO SCH (21:00)
== END 2016-07-06 17:25 | disposition home or self-care (01) | DRG 880 ==
LOC: ER 16:51 → 6 SOUTH 19:10
PROVIDERS: ADMIT Internal Medicine Hematology & Oncology; ATTEND Internal Medicine Hematology & Oncology
DX: F41.9 Anxiety disorder, unspecified (principal); I50.22 Chronic systolic (congestive) heart failure; I11.0 Hypertensive heart disease with heart failure; I25.119 Atherosclerotic heart disease of native coronary artery with unspecified angina pectoris; E78.00 Pure hypercholesterolemia, unspecified; J44.9 Chronic obstructive pulmonary disease, unspecified; E78.5 Hyperlipidemia, unspecified; F17.210 Nicotine dependence, cigarettes, uncomplicated; I48.91 Unspecified atrial fibrillation; I70.0 Atherosclerosis of aorta; I73.9 Peripheral vascular disease, unspecified; J45.909 Unspecified asthma, uncomplicated; M41.9 Scoliosis, unspecified; Z66 Do not resuscitate; Z96.651 Presence of right artificial knee joint; Z86.73 Personal history of transient ischemic attack (TIA), and cerebral infarction without residual deficits; I25.2 Old myocardial infarction; Z95.1 Presence of aortocoronary bypass graft; Z82.49 Family history of ischemic heart disease and other diseases of the circulatory system; Z99.81 Dependence on supplemental oxygen; Z86.74 Personal history of sudden cardiac arrest; Z91.19 Patient's noncompliance with other medical treatment and regimen; Z98.51 Tubal ligation status; Z79.899 Other long term (current) drug therapy; Z79.82 Long term (current) use of aspirin; Z90.49 Acquired absence of other specified parts of digestive tract; Z90.710 Acquired absence of both cervix and uterus
CPT/HCPCS: 99291; C8929; 36415; 70450; 70551; 71010; 80048; 80053; 80061; 82607; 82746; 82947; 84484; 85027; 85610; 85730; 93005; 93880; 94250; 94620; 94640; 94760

== ENCOUNTER 2017-12-06 07:43 | Emergency (ER) | payer BC, MEDICAID ==
[~2017-12-06] VITALS: Ht 157.5 cm; Wt 85.4 kg
[~2017-12-06 07:43] MED LIST changes: +ASPI-630 PO; +ASPI325T8 PO; +ATOR40TA59 PO; +CLON0.5T11 PO; +DEXT15DR16 OP; -DIGO125T16 PO; +DIGO125T79 PO; +DIGO250T PO; +FLUT1DIS3 IH; +LEXAPRO20 MG PO; +LISI-334 PO; -NAPR250T2 PO; +NAPR250T6 PO; +NITR0.4T22 SL; -NITR0.4T6 SL; +OXYC-327 PO; +TRAZ-85 PO; +VENTOLIN HFA18 GM INH
[2017-12-06 07:54] VITALS: BP 149/88
[2017-12-06 07:58] LABS: BILIRUBIN,URINE SMALL (NEG); CLARITY,URINE CLEAR; NITRITE,URINE POSITIVE (NEG); PROTEIN,URINE NEGATIVE (NEG-TRACE)
--- NOTE | 2017-12-06 08:12 | PHYS DOC ---
Past Medical History Past Medical History: Anxiety, CAD, CHF, COPD, High Cholesterol, Hypertension, NV, Other Additional Past Medical Histor: NV x 13; cardiac arrest Past Surgical History: Coronary Bypass Surgery, , Hysterectomy, Knee Replacement, Tonsillectomy, Tubal ligation, Other Additional Past Surgical Histo: right femoral artery stent; right knee, DENTAL EXT Alcohol Use: None Drug Use: None Adult General Chief Complaint Chief Complaint: PAIN ON URINATION [facility] HPI Patient is a 57 year old female who presents with possible UTI. The patient complains that she has been having intermittent chills. She has had requested urine and dysuria. She has had symptoms over the last 3-4 days. She did recently return from a camping trip. She does have some intermittent flank pain as well. Patient has had multiple urinary tract infections in the past and relates that the symptoms seem exactly typical for her normal syndrome. No nausea or vomiting. No abdominal pain. Otherwise, has been at baseline health. Review of Systems Review of Systems Constitutional: + chills HENT: Denies nasal congestion Respiratory: Denies cough or shortness of breath Cardiovascular: No additional information not addressed in HPI GI: Denies abdominal pain, nausea : Denies dysuria Musculoskeletal: Denies back pain Integument: Denies rash Neurologic: Denies headache Endocrine: Denies polyuria or polydipsia All other systems were reviewed and found to be within normal limits, except as documented in this note. Allergies Allergies Allergies Coded Allergies Type Severity Reaction Last Updated Verified No Known Drug Allergies 11/28/14 No Physical Exam Physical Exam Constitutional: Well developed, well nourished, no acute distress, non-toxic appearance HENT: Normocephalic, atraumatic, bilateral external ears normal, oropharynx moist Eyes: PERRLA, EOMI, conjunctiva normal Neck: Normal range of motion, no tenderness Cardiovascular:Heart rate regular rhythm, no murmur Lungs & Thorax: Bilateral breath sounds clear to auscultation Abdomen: Bowel sounds normal, soft Skin: Warm, dry, no erythema Extremities: No edema Neurologic: Alert and oriented X 3 Psychologic: Affect normal Current Patient Data Vital Signs Vital Signs Date Time Temp Pulse Resp B/P (MAP) Pulse Ox O2 Delivery O2 Flow Rate FiO2 12/06/17 07:54 97.5 94 16 149/88 (108) 98 Room Air 97.5 Lab Values Laboratory Tests Test 12/06/17 07:47 Urine Collection Type Unknown Urine Color Desiree Urine Clarity Clear Urine pH 6.0 Urine Specific Agency 1.020 Urine Protein Negative mg/dL (NEG-TRACE) Urine Glucose (UA) Negative mg/dL (NEG) Urine Ketones (Stick) Negative mg/dL (NEG) Urine Blood Small (NEG) Urine Nitrite Positive (NEG) Urine Bilirubin Small (NEG) Urine Urobilinogen Dipstick 4.0 mg/dL (0.2 mg/dL) Urine Leukocyte Esterase Moderate (NEG) Urine RBC 3-5 /HPF (0-2) Urine WBC 20-40 /HPF (0-4) Urine Squamous Epithelial Cells Mod /LPF Urine Bacteria Mod /HPF (0-FEW) Urine Mucus Mod /LPF EKG EKG [] Radiology/Procedures Radiology/Procedures [] Course & Med Decision Making Course & Med Decision Making Pertinent Labs and Imaging studies reviewed. (See chart for details) 08:10: Patient is seen and examined. UA pending. non-toxic appearance. no distress. 09:00: Urinalysis returned with results documented above. Patient has a UTI. Urine culture was added to her lab panel. The patient is placed on Bactrim double strength tablets twice a day over the next 5 days. She is also given Pyridium 3 times a day over the next 2 days for control of symptoms. Patient has tolerated both these treatments in the past. She will return to the ER for any new or worsening symptoms or follow up with her primary care doctor. [place] Disclaimer Dragon Disclaimer This electronic medical record was generated, in whole or in part, using a voice recognition dictation system. Departure Departure Referrals: LORNA GONZALEZ MD (PCP) Scripts Phenazopyridine Hcl (PYRIDIUM) 100 Mg Tablet 100 MG PO TID, #6 TAB Prov: MARYCHUY GOODE DO 12/06/17 Sulfamethoxazole/Trimethoprim (BACTRIM DS TABLET) 1 Each Tablet 1 TAB PO BID, #10 TAB Prov: MARYCHUY GOODE DO 12/06/17 MARYCHUY GOODE DO Dec 06, 2017 08:12
[2017-12-06 08:15] LABS: COLOR,URINE AMBER
[2017-12-06 08:16] LABS: SQUAMOUS EPITHELIAL CELL,UR MOD /LPF
[2017-12-06 08:17] LABS: BACTERIA,URINE MOD /HPF (0-FEW); WBC,URINE 20-40 /HPF (0-4)
[2017-12-06] MEDS ORDERED: PHEN100T82 PO (08:22)
[2017-12-06] MEDS ORDERED: SULF1TAB24 PO (08:22)
== END 2017-12-06 08:33 | disposition home or self-care (01) ==
LOC: ER 07:43
DX: R30.0 Dysuria (principal); F41.9 Anxiety disorder, unspecified; J44.9 Chronic obstructive pulmonary disease, unspecified; E78.00 Pure hypercholesterolemia, unspecified; I11.0 Hypertensive heart disease with heart failure; I50.9 Heart failure, unspecified; I25.2 Old myocardial infarction; Z98.890 Other specified postprocedural states; Z90.710 Acquired absence of both cervix and uterus; Z90.89 Acquired absence of other organs; Z98.51 Tubal ligation status; Z96.659 Presence of unspecified artificial knee joint
CPT/HCPCS: 81001; 87086; 99284

== ENCOUNTER 2018-08-31 11:27 | Emergency (ER) | payer BC ==
[~2018-08-31] VITALS: Ht 157.5 cm; Wt 85.3 kg
[~2018-08-31 11:27] MED LIST changes: +HYDR-3164 PO; -HYDR-971 PO; -OXYC-327 PO; +OXYC1TAB19 PO; +PHEN100T82 PO; +SULF1TAB24 PO; +TRAZ-118 PO; -TRAZ-85 PO
--- NOTE | 2018-08-31 12:21 | RAD ---
Portable right wrist, 3 views, 08/31/2018: HISTORY: Fall, pain The bony structures are demineralized. There is a fracture of the distal radius with moderate dorsal displacement and mild dorsal angulation of the major distal fracture fragment. A small ulnar styloid fracture is present. The carpal bones are intact. No dislocation is evident. There is moderate associated soft tissue swelling. IMPRESSION: 1. Displaced distal radial fracture. 2. Small ulnar styloid fracture. Electronically signed by: Sandor De La Cruz MD (08/31/2018 12:18 PM) [facility]
[2018-08-31] MEDS ORDERED: fentaNYL PF VIAL 100 MCG/2 ML VIAL IV ONE ×2 (12:30→13:15)
--- NOTE | 2018-08-31 12:36 | PHYS DOC ---
Past Medical History Past Medical History: Anxiety, CAD, CHF, COPD, High Cholesterol, Hypertension, [place], Other Additional Past Medical Histor: CO x 13; cardiac arrest Past Surgical History: Coronary Bypass Surgery, , Hysterectomy, Knee Replacement, Tonsillectomy, Tubal ligation, Other Additional Past Surgical Histo: right femoral artery stent; right knee, DENTAL EXT Alcohol Use: None Drug Use: None Adult General Chief Complaint Chief Complaint: UPPER EXTREMITY INJURY HPI HPI Patient is a 58 year old F who presents for FOOSH with right wrist deformity. Denies other injury. Did not hit her head or lose consciousness. Review of Systems Review of Systems Constitutional: Denies fever or chills Eyes: Denies change in visual acuity, redness, or eye pain HENT: Denies nasal congestion or sore throat Respiratory: Denies cough or shortness of breath Cardiovascular: No additional information not addressed in HPI GI: Denies abdominal pain, nausea, vomiting, bloody stools or diarrhea Musculoskeletal: Denies back pain or joint pain Integument: Denies rash or skin lesions Neurologic: Denies headache, focal weakness or sensory changes All other systems were reviewed and found to be within normal limits, except as documented in this note. Current Medications Current Medications Current Medications Medications (Trade) Dose Ordered Sig/Donovan Start Time Stop Time Status Last Admin Dose Admin Fentanyl Citrate (Fentanyl 2ml Vial) 75 mcg 1X ONCE 08/31/18 13:15 08/31/18 13:16 DC 08/31/18 12:50 75 MCG Allergies Allergies Allergies Coded Allergies Type Severity Reaction Last Updated Verified No Known Drug Allergies 11/28/14 No Physical Exam Physical Exam Constitutional: Well developed, well nourished, no acute distress, non-toxic appearance. HENT: Normocephalic, atraumatic, bilateral external ears normal, oropharynx moist, no oral exudates, nose normal. Eyes: EOMI, conjunctiva normal, no discharge. Neck: Normal range of motion, no tenderness, supple, no stridor. Cardiovascular:Heart rate regular rhythm, no murmur Lungs & Thorax: Bilateral breath sounds clear to auscultation Abdomen: Bowel sounds normal, soft, no tenderness, no masses, no pulsatile masses. Skin: Warm, dry, no erythema, no rash. Back: No tenderness, no CVA tenderness. Extremities: Right wrist deformity, 2+ radial pulse, cap refill <3 sec; both of patients hands are fairly red at baseline. Sensation and motor fx of hand intact. Elbow and shoulder NT. Neurologic: Alert and oriented X 3, normal motor function, normal sensory function, no focal deficits noted. Psychologic: Affect normal, judgement normal, mood normal. Current Patient Data Vital Signs Vital Signs Date Time Temp Pulse Resp B/P (MAP) Pulse Ox O2 Delivery O2 Flow Rate FiO2 08/31/18 13:17 86 96/59 (71) 97 Room Air 08/31/18 11:51 98.7 20 5.0 98.7 EKG EKG [] Radiology/Procedures Radiology/Procedures [] Course & Med Decision Making Course & Med Decision Making Pertinent Labs and Imaging studies reviewed. (See chart for details) 58 y/o F presents for r wrist fx. Radius fx reduced with fentanyl and sugartong splint placed. Discussed with dr. Villegas who agrees with outpt follow up, reduction adequate. Dragon Disclaimer Dragon Disclaimer This electronic medical record was generated, in whole or in part, using a voice recognition dictation system. Departure Departure Impression: Primary Impression: Distal radius fracture, right Disposition: 01 HOME, SELF-CARE Condition: IMPROVED Referrals: LORNA GONZALEZ MD (PCP) RENZO VILLEGAS MD Patient Instructions: Radius Fracture with [facility] RENEE ZAMORA MD August 31, 2018 12:36
[2018-08-31 13:17] VITALS: BP 96/59
--- NOTE | 2018-08-31 13:24 | RAD ---
Right wrist, 2 views, 08/31/2018, 1:03 PM: HISTORY: Fracture post casting Comparison is made to a study from earlier in the day. The current images were obtained through a radiopaque splint compromising bony detail. There is persistent dorsal displacement and mild dorsal angulation of the distal fracture fragment at the site of the distal radial fracture. The ulnar styloid fractures less clearly visualized. No new bony abnormality is detected. Electronically signed by: Sandor De La Cruz MD (08/31/2018 1:22 PM) [facility]
== END 2018-08-31 13:50 | disposition home or self-care (01) ==
LOC: ER 11:27
DX: S52.591A Other fractures of lower end of right radius, initial encounter for closed fracture (principal); S52.611A Displaced fracture of right ulna styloid process, initial encounter for closed fracture; E78.00 Pure hypercholesterolemia, unspecified; I25.10 Atherosclerotic heart disease of native coronary artery without angina pectoris; J44.9 Chronic obstructive pulmonary disease, unspecified; I11.0 Hypertensive heart disease with heart failure; I50.9 Heart failure, unspecified; I25.2 Old myocardial infarction; Z95.5 Presence of coronary angioplasty implant and graft; Z95.1 Presence of aortocoronary bypass graft; W18.39XA Other fall on same level, initial encounter; Y93.89 Activity, other specified; Y92.89 Other specified places as the place of occurrence of the external cause; Y99.8 Other external cause status
CPT/HCPCS: 25605; 73100; 73110; 99284; J3010

== ENCOUNTER 2019-01-22 16:07 | Emergency (ER) | payer BC ==
[~2019-01-22] VITALS: Ht 157.5 cm; Wt 78.0 kg
[~2019-01-22 16:07] MED LIST changes: +CLON-77 PO; -CLON0.5T11 PO
[2019-01-22 16:15] VITALS: BP 158/78
[2019-01-22] MEDS ORDERED: NAPROXEN 500 MG TABLET PO STA (16:25)
[2019-01-22] MEDS ORDERED: HYDROcodone/APAP 5/325MG 1 TAB TABLET PO ONE (16:30)
--- NOTE | 2019-01-22 16:51 | RAD ---
Three-view left hand radiographs 01/22/2019 CLINICAL HISTORY: Fall with injury to the left hand. PA, lateral and oblique digital radiographs of the left hand were obtained. No fracture or dislocation of the left hand is seen. Mild degenerative changes are seen throughout the interphalangeal joints of the left hand. IMPRESSION: No fracture or dislocation of the left hand is seen. Electronically signed by: Artemio Faust MD (01/22/2019 4:48 PM) [facility]
[2019-01-22] MEDS ORDERED: GABA300C18 PO (18:16)
--- NOTE | 2019-01-22 18:16 | PHYS DOC ---
Past Medical History Past Medical History: Anxiety, CAD, CHF, COPD, High Cholesterol, Hypertension, [place], Other Additional Past Medical Histor: AR x 13; cardiac arrest (JACOB BROWN APRN) Past Surgical History: Coronary Bypass Surgery, , Hysterectomy, Knee Replacement, Tonsillectomy, Tubal ligation, Other Additional Past Surgical Histo: right femoral artery stent; right knee, DENTAL EXT (JACOB BROWN APRN) Alcohol Use: None Drug Use: None (JACOB BROWN APRN) Adult General Chief Complaint Chief Complaint: HAND PROBLEM HPI HPI Patient is a 58 year old female who presents to the ED today complaining of 7 out of 10 left hand pain that began yesterday after she tripped and fell into a hole. Patient denies any loss of consciousness. She describes the pain as throbbing and intermittent. (JACOB BROWN APRN) Review of Systems Review of Systems Constitutional: Denies fever or chills [] Musculoskeletal: Reports left hand pain Integument: Denies rash or skin lesions [] Neurologic: Denies headache, focal weakness or sensory changes [] All other systems were reviewed and found to be within normal limits, except as documented in this note. (JACOB BROWN APRN) Current Medications Current Medications Current Medications Medications (Trade) Dose Ordered Sig/Donovan Start Time Stop Time Status Last Admin Dose Admin Acetaminophen/ Hydrocodone Bitart (Lortab 5/325) 2 tab 1X ONCE 01/22/19 16:30 01/22/19 16:31 DC 01/22/19 16:33 2 TAB Naproxen (Naprosyn) 500 mg 1X STAT 01/22/19 16:25 01/22/19 16:26 DC 01/22/19 16:33 500 MG (MIHIR HARVEY DO) Allergies Allergies Allergies Coded Allergies Type Severity Reaction Last Updated Verified No Known Drug Allergies 11/28/14 No (MIHIR HARVEY DO) Physical Exam Physical Exam Constitutional: Well developed, well nourished, no acute distress, non-toxic appearance. []] Skin: Warm, dry, no erythema, no rash. [] Back: No tenderness, no CVA tenderness. [] Extremities: Left hand with no obvious deformity. No tenderness, no edema, full range of motion to the left hand. Adequate radial, medial, ulnar sensation to the left hand. +2 left radial pulse. Cap refill less than 2 seconds the left fingers. Neurologic: Alert and oriented X 3, normal motor function, normal sensory func tion, no focal deficits noted. [] Psychologic: Affect normal, judgement normal, mood normal. [] (JACOB BROWN APRN) Current Patient Data Vital Signs Vital Signs Date Time Temp Pulse Resp B/P (MAP) Pulse Ox O2 Delivery O2 Flow Rate FiO2 01/22/19 16:15 99.8 92 18 158/78 (104) 97 Room Air 99.8 (MIHIR HARVEY DO) EKG EKG [] (JACOB BROWN APRN) Radiology/Procedures Radiology/Procedures []PROCEDURE: HAND LEFT 3V Three-view left hand radiographs 01/22/2019 CLINICAL HISTORY: Fall with injury to the left hand. PA, lateral and oblique digital radiographs of the left hand were obtained. No fracture or dislocation of the left hand is seen. Mild degenerative changes are seen throughout the interphalangeal joints of the left hand. IMPRESSION: No fracture or dislocation of the left hand is seen. Electronically signed by: Artemio Faust MD (01/22/2019 4:48 PM) [facility] DICTATED and SIGNED BY: ARTEMIO FAUST MD DATE: 01/22/19 [id number] (JACOB BROWN APRN) Course & Med Decision Making Course & Med Decision Making Pertinent Labs and Imaging studies reviewed. (See chart for details) This is a 58-year-old female patient who presents to the ED today with left hand pain status post falling yesterday. Left hand x-rays interpreted by radiologist are negative for any acute findings. Provided Ortho for follow-up. (JACOB BROWN APRN) Dragon Disclaimer Dragon Disclaimer This electronic medical record was generated, in whole or in part, using a voice recognition dictation system. (JACOB BROWN APRN) Departure Departure Impression: Primary Impression: Hand sprain Additional Impression: Fall Disposition: 01 HOME, SELF-CARE Condition: STABLE Referrals: LORNA GONZALEZ MD (PCP) CASSANDRA ROUSE II, MD follow up in one week Patient Instructions: Joint Sprain Additional Instructions: You were evaluated in the emergency room for left hand sprain. Try to ice and elevate the extremity. The left hand x-rays are negative for any acute findings. Follow up with your doctor in one week or the provided doctor. Scripts Gabapentin (GABAPENTIN ) 300 Mg Capsule 300 MG PO TID for NEUROGENIC PAIN, #20 CAP Prov: JACOB BROWN DAHIANA 01/22/19 Attending Signature Attending Signature I have reviewed the PA/TEACHER LIP READING's note and plan of care. I was available for consultation as needed during the patient's visit in the emergency department. I agree with the clinical impression, plan, and disposition. (MIHIR HARVEY DO) Problem Qualifiers Primary Impression: Hand sprain Encounter type: initial encounter Laterality: left Qualified Codes: S63.92XA - Sprain of unspecified part of left wrist and hand, initial encounter Additional Impression: Fall Encounter type: initial encounter Qualified Codes: W19.XXXA - Unspecified fall, initial encounter LAYLALucyJACOB APRN Jan 22, 2019 18:16 MIHIR HARVEY DO Jan 22, 2019 19:10
== END 2019-01-22 18:15 | disposition home or self-care (01) ==
LOC: ER 16:07
DX: S63.8X2A Sprain of other part of left wrist and hand, initial encounter (principal); I11.0 Hypertensive heart disease with heart failure; I25.10 Atherosclerotic heart disease of native coronary artery without angina pectoris; I50.9 Heart failure, unspecified; F41.9 Anxiety disorder, unspecified; E78.00 Pure hypercholesterolemia, unspecified; I25.2 Old myocardial infarction; J44.9 Chronic obstructive pulmonary disease, unspecified; Z98.890 Other specified postprocedural states; Z90.710 Acquired absence of both cervix and uterus; Z98.51 Tubal ligation status; Z90.89 Acquired absence of other organs; Z95.1 Presence of aortocoronary bypass graft; W17.2XXA Fall into hole, initial encounter; Y93.89 Activity, other specified; Y92.89 Other specified places as the place of occurrence of the external cause; Y99.8 Other external cause status
CPT/HCPCS: 73130; 99284

== ENCOUNTER 2019-07-24 14:37 | Emergency (ER) | payer BC, MEDICARE ==
[~2019-07-24] VITALS: Ht 160 cm; Wt 72.8 kg
[~2019-07-24 14:37] MED LIST changes: -DIGO250T PO; +DIGO250T3 PO; +GABA300C18 PO
[2019-07-24 15:10] VITALS: BP 177/102
== END 2019-07-24 16:07 | disposition left against medical advice (07) ==
LOC: ER 14:37
DX: K08.89 Other specified disorders of teeth and supporting structures (principal); Z53.21 Procedure and treatment not carried out due to patient leaving prior to being seen by health care provider